=== PATIENT | female | born 1955 | race Caucasian/White ===

== ENCOUNTER → 2022-08-14 10:07 | Outpatient (BNVA) | payer MEDICARE, SELFPAY | PROVIDERS: Visit Provider Urology | DX: C67.9 Malignant neoplasm of bladder, unspecified (principal); C66.1 Malignant neoplasm of right ureter; D17.71 Benign lipomatous neoplasm of kidney | CPT/HCPCS: 99205 ==

== ENCOUNTER 2022-09-03 01:28 | Outpatient (CLI) | payer MEDICARE, SELFPAY ==
--- NOTE | 2022-09-03 07:02 | DI.CT_ITS ---
Exam(s) CT ABDOMEN PELVIS WO/W EXAM: CT ABDOMEN PELVIS WO/W CLINICAL HISTORY: ANGIOMYOLPIOMA reportedly 3x5 cm 2020, hx ureteral tumor,CA,D17.71 TECHNIQUE: Imaging Protocol: Axial computed tomography images with coronal and sagittal reformatted images were created and reviewed CONTRAST MATERIAL: Intravenous: Omnipaque 350 Contrast volume:100 mL Oral: yes / no CT CT CHEST SCREENING 13906 from 11/27/[address] CHEST W/O 33890 from 02/07/2022 FINDINGS: ABDOMEN: Lung Bases: Normal where visualized. Liver: Normal density. No measurable mass. Portal, Superior Mesenteric, and Splenic Veins: Unremarkable. Gallbladder and Biliary Tract: Status post cholecystectomy. Pancreas: Normal density, no abnormal calcifications or inflammatory process. Spleen: Normal. Adrenals: No masses seen. Kidneys: Normal size, contour and axis. No radiodense stones or obstructive uropathy. There is a fat density mass in the superior pole of the left kidney measuring 2.7 x 5.2 cm. This compares to a 3 x 5 cm on the prior examination. The finding is most suggestive of a angiomyolipoma. Abdominal Aorta: Abdominal portion non-dilated. Bowel: No obstruction or bowel wall thickening. No evidence of appendicitis. Peritoneal Cavity: No ascites, collection or mesenteric inflammatory response. No free air. Lymph Nodes: Within normal limits. Bones: Within normal limits for the patient's age. Soft Tissues: Unremarkable. PELVIS: Bladder: Symmetric distention, no gross wall thickening. The delayed images show no filling defects i n the urinary bladder. Reproductive Organs: Unremarkable as visualized. Lymph Nodes: Within normal limits. Bones: Within normal limits for the patient's age. IMPRESSION: Stable fat density mass in the upper pole of the left kidney consistent with an angiomyolipoma. RADIATION DOSE DELIVERED: 2,399.69mGy.cm Total DLP 2,399.69mGy.cm Total DLP DATA REPOSITORY: All CT scans at this facility are submitted to the National Radiology Data Registry (NRDR) Dose Index Registry (DIR) with the [employer] (ACR). RADIATION OPTIMIZATION: All CT scans at this facility use at least one of these dose optimization te chniques: automated exposure control; mA and/or kV adjustment per patient size (includes targeted exa ms where dose is matched to clinical indication); or iterative reconstruction.
[2022-09-03 07:34] LABS: HCT 42.6 % (36.0-46.0); HGB 13.6 g/dL (11.2-15.7); MCH 28.6 pg (27.0-33.0); MCHC 31.9 % (32.0-36.0); MCV 90 fL (80-95); MPV 10.6 fL (8.0-11.0); Platelet Count 360 10^3/uL (130-400); RBC 4.76 10^6/uL (3.93-5.22); RDW 14.3 % (11.7-14.6); RDW-SD 47.1 fL; WBC 6.87 10^3/uL (4.4-10.8)
[2022-09-03 07:50] LABS: ALT 28 U/L (14-59); AST 18 U/L (15-37); Albumin 3.8 g/dL (3.4-5.0); Alkaline Phosphatase 87 U/L (46-116); Anion Gap 8.5 mmol/L (3-11); BUN 23 mg/dL (7-18); Bilirubin, Total 0.4 mg/dL (0.2-1.0); CO2 27.5 mmol/L (21.0-32.0); CREATININE 0.9 mg/dL (0.55-1.02); Calcium 9.1 mg/dL (8.5-10.1); Chloride 106 mmol/L (98-107); Estimated GFR 70.95 (mL/min/1.73m2); Glucose 94 mg/dL (74-106); Potassium 4.1 mmol/L (3.5-5.1); Sodium 142 mmol/L (136-145); Total Protein 7.9 g/dL (6.4-8.2)
[2022-09-03] MEDS: Omnipaque 350 MG/ML 500 ML BTL-Imaging package IJ (08:14)
== END 2022-09-03 01:48 ==
PROVIDERS: Visit Provider Urology
DX: C66.1 Malignant neoplasm of right ureter (principal); C67.9 Malignant neoplasm of bladder, unspecified; D17.71 Benign lipomatous neoplasm of kidney
CPT/HCPCS: 80053; 85027; 74178

== ENCOUNTER → 2022-09-15 07:46 | Outpatient (BNVA) | payer MEDICARE, SELFPAY | PROVIDERS: Visit Provider Urology | DX: C66.1 Malignant neoplasm of right ureter (principal); C67.9 Malignant neoplasm of bladder, unspecified; D17.71 Benign lipomatous neoplasm of kidney | CPT/HCPCS: 99442 ==

== ENCOUNTER → 2022-09-23 08:52 | Outpatient (BNVA) | payer MEDICARE, SELFPAY | PROVIDERS: Visit Provider Urology | DX: Z08 Encounter for follow-up examination after completed treatment for malignant neoplasm (principal); Z85.51 Personal history of malignant neoplasm of bladder; Z85.54 Personal history of malignant neoplasm of ureter | CPT/HCPCS: 52000; 81003 ==

== ENCOUNTER 2022-09-23 11:00 | Outpatient (REF) | payer MEDICARE, SELFPAY ==
--- NOTE | 2022-09-23 09:20 | PAPNONF_PTH ---
PATIENT: Matthew Mendez LOC: [facility] U#:[id number] AGE/SX: 67/F ROOM: RE09/23/[address]: Robin Goldman MD : 1955 BED: DIS: 09/23/2022 SPEC #: [id number] RECD: 09/23/22 13:06 STATUS: JANNA REMelvin #: [id number] RICKY: 09/23/22 09:[address]: Robin Goldman DEPT: [facility] Cytology RECD BY: Cadence Morales Tissues: 1 - BODY FLUID CYTO(SPUTUM/URINE)[facility] Procedures: BODY FLUID CYTO(URINE/SPUTUM) Comments: [id number] (TOTAL VOLUME = 30 ml) (REFRIGERATED) (30 ml URINE & 30 ml CYTOLYT ADDED)
== END 2022-09-23 11:01 | disposition home or self-care (01) ==
LOC: LBN 11:00
PROVIDERS: Visit Provider Urology
DX: Z85.51 Personal history of malignant neoplasm of bladder (principal); Z85.54 Personal history of malignant neoplasm of ureter
CPT/HCPCS: 88104

== ENCOUNTER 2023-01-20 01:18 | Outpatient (CLI) | payer MEDICARE, SELFPAY ==
--- NOTE | 2023-01-20 | DI.MAMMO_ITS ---
Exam(s) MAMMO SCREENING EXAM: MAMMO SCREENING CLINICAL HISTORY: SCREENING, Z12.39 TECHNIQUE: Bilateral full field digital CC and MLO mammographic images were obtained with 3D tomosyn thesis and utilizing computer aided detection (CAD). COMPARISON: Available for comparison. FINDINGS: Masses/Architectural Distortion: None seen. Microcalcifications: No suspicious pleomorphic-type are seen. Skin Thickening/Nipple Retraction: None. IMPRESSION: 1. No significant interval change with no specific features of malignancy noted. 2. Unless there is more urgent need, screening mammography is recommended, as per [employer] guidelines. BI-RADS Category 1 - Negative Breast Density - Category B - Scattered areas of fibroglandular density Breast density category C or D implies that the patient has dense breast tissue. Dense breast tissue is very common and is not abnormal but dense breast tissue can make it harder to find cancer on a ma mmogram. Also, dense breast tissue may increase their breast cancer risk. This information about the result of the mammogram report was provided to the patient to raise their awareness. Use this report when you speak with the patient about their risks for breast cancer, which includes their family hist ory. At that time, you may recommend for more screening tests (Ultrasound or MRI) as they might be us eful based on their risk. A negative radiographic report should not delay biopsy if a dominant or clinically suspicious mass is present. Up to ten percent of cancers are not identified on mammography. A negative report may reinforce clinical impression. Adenosis and dense breasts may obscure an underlying neoplasm. False positive reports average 6 to 10%. Patient will receive a letter notifying them of these results.
== END 2023-01-20 01:38 ==
LOC: DI 01:18
PROVIDERS: Visit Provider Physician Assistant
DX: Z12.31 Encounter for screening mammogram for malignant neoplasm of breast (principal)
CPT/HCPCS: 77063; 77067

== ENCOUNTER → 2023-09-08 00:27 | Outpatient (CLI) | payer MEDICARE, SELFPAY ==
--- NOTE | 2023-09-08 08:00 | DI.US_ITS ---
Exam(s) US RENAL EXAM: US RENAL CLINICAL HISTORY: angiomyolipoma of kidney,D17.71 TECHNIQUE: Ultrasound of both kidneys performed using standard protocol. US US BREAST UNILATERAL LTD :- [id number] from 12/11/[address] ABDOMEN PELVIS WO/W from 09/03/2022 FINDINGS: RIGHT KIDNEY: Measures 10 cm in length. No cysts evident. Normal cortical thickness and corticomedullary differenti ation .No solid masses No intrarenal calculi nor hydronephrosis. LEFT KIDNEY: Measures 10 cm in length. No cysts evident. Normal cortical thickness and corticomedullary different iaion. No intrarenal calculi nor hydonephrosis. There is a uniformly hyperechoic lesion in the righ t hepatic lobe which measures 1.5 x 1.2 x 1.3 cm, consistent with probable angiomyolipoma. However, this appears to be a partially intrarenal as well as exophytic lesion and on ultrasound it is difficu lt to determine/measure the exophytic component from the adjacent perirenal fat. URINARY BLADDER: Prevoid volume is 157 cc Postvoid volume is 8 cc No evidence of bladder mass nor diverticuli. Ureterovesical jets: Both identified and appear symmetrical IMPRESSION: 1. No significant ultrasound findings in the right kidney. 2. With respect of the left kidney, the hyperechoic fatty lesion in the superior pole is shown to be partially intrarenal and partially exophytic. This makes accurate comparison to prior CT studies ri [facility] difficult as it is difficult to differentiate the larger exophytic component of this mass from th e adjacent perirenal fat and therefore is not possible to determine if this lesion has increased in s ize when compared to the prior CT scan of September 2022. For this reason I recommend follow-up CT sc an or MRI for accurate comparison. Cannot exclude more concerning pathology although I note that thi s partially intrarenal and partially exophytic fatty lesion at the superior pole the right kidney exh ibits minimal change on the recent 09/03/2022 CT scan from the more remote CT scan of 07/27/2020 (3 y ears). Therefore the chance of this being a more aggressive lesion such as a retroperitoneal liposar coma is less likely. In addition, the ipsilateral left adrenal gland is immediately adjacent to this fatty lesion bring in to mind the possibility of an adrenal myelolipoma. However, in this case this lesion definitely appe ars to be emanating from the superior pole of the ipsilateral left kidney and is therefore most likel y a primary renal (as opposed to adrenal) lesion. DATA REPOSITORY:
== END ==
PROVIDERS: Visit Provider Urology
DX: D17.71 Benign lipomatous neoplasm of kidney (principal)
CPT/HCPCS: 76770

== ENCOUNTER → 2023-10-05 14:05 | Outpatient (BNVA) | payer MEDICARE, SELFPAY | PROVIDERS: Visit Provider Urology | DX: D17.71 Benign lipomatous neoplasm of kidney (principal); C66.1 Malignant neoplasm of right ureter | CPT/HCPCS: 52000; 81003 ==

== ENCOUNTER 2023-10-05 14:43 | Outpatient (REF) | payer MEDICARE, SELFPAY ==
--- NOTE | 2023-10-05 14:30 | PAPNONF_PTH ---
PATIENT: Matthew Mendez LOC: [facility] U#:[id number] AGE/SX: 68/F ROOM: RE10/05/[address]: Robin Goldman MD : 1955 BED: DIS: 10/05/2023 SPEC #: [id number] RECD: 10/05/23 18:04 STATUS: JANNA MAYES #: [id number] RICKY: 10/05/23 14:[address]: Robin Goldman DEPT: [facility] Cytology RECD BY: Cadence Morales ENTERED: 10/05/23 18:05 SP TYPE: AMBROSE LUO DR: No Local Tissues: 1 - BODY FLUID CYTO(SPUTUM/URINE)[facility] Procedures: BODY FLUID CYTO(URINE/SPUTUM) Comments: [id number] (TV = 60 ml, 30 ml CYTOLYT ADDED) (REFRIGERATED)
== END 2023-10-05 14:44 | disposition home or self-care (01) ==
LOC: LBN 14:43
PROVIDERS: Visit Provider Urology
DX: C66.1 Malignant neoplasm of right ureter (principal); C67.9 Malignant neoplasm of bladder, unspecified
CPT/HCPCS: 88104

== ENCOUNTER → 2023-10-16 00:48 | Outpatient (CLI) | payer MEDICARE, SELFPAY ==
--- NOTE | 2023-10-16 08:30 | DI.CT_ITS ---
Exam(s) CT ABDOMEN PELVIS WO/W EXAM: CT ABDOMEN PELVIS WO/W CLINICAL HISTORY: f/u angiomyolipoma kidney,? change,h/o ca,D17.71. TECHNIQUE: Imaging Protocol: Axial computed tomography images with coronal and sagittal reformatted images were created and reviewed. Images were performed from the lung bases through the ischial tuberosities before IV contrast and fol lowing IV contrast using a 70 second delay, followed by 7 minutes delayed images. CONTRAST MATERIAL: Intravenous: Omnipaque 350 Contrast volume:100 cc Oral: no CT CT ABDOMEN PELVIS WO/W from 09/03/2022 FINDINGS: ABDOMEN: Lung Bases: Normal where visualized. Liver: Normal density. No measurable mass. Gallbladder and biliary tract: No radiodense calculus or dilation. Pancreas: Normal density, no abnormal calcifications or inflammatory process. Spleen: Normal. Kidneys: Normal size, contour and axis. No radiodense stones or obstructive uropathy. No change in si ze or appearance of the previously noted fatty density mass emanating from the superior pole of the left kidney. Adrenal glands: No masses seen. Lymph nodes: Within normal limits. Abdominal Aorta: Abdominal portion non-dilated. Soft tissues: Unremarkable. PELVIS: Bladder: No gross wall thickening. No evidence of a mass.No evidence of calculi. Bowel: No obstruction or bowel wall thickening. Appendix normal. Normal quantity of stool. Peritoneal cavity: No ascites, collection or mesenteric inflammatory response. Soft tissues: Bones: Degenerative changes. No compression fractures. No suspicious lesions. Reproductive organs: Unremarkable for age.. IMPRESSION: Stable size and appearance of of fatty attenuation left renal mass consistent with angiomyolipoma. RADIATION DOSE DELIVERED: Total DLP DATA REPOSITORY: All CT scans at this facility are submitted to the National Radiology Data Registry (NRDR) Dose Index Registry (DIR) with the [employer] (ACR). RADIATION OPTIMIZATION: All CT scans at this facility use at least one of these dose optimization te chniques: automated exposure control; mA and/or kV adjustment per patient size (includes targeted exa ms where dose is matched to clinical indication); or iterative reconstruction.
[2023-10-16 12:53] LABS: CREATININE 0.9 mg/dL (0.55-1.02); Estimated GFR 70.51 (mL/min/1.73m2)
[2023-10-16] MEDS: Omnipaque 350 MG/ML 100 ML BTL IJ (13:21)
[2023-10-16] MEDS: Normal Saline - Diluent 50 ML VIAL 100 ML IJ (13:23)
[2023-10-16] MEDS: Normal Saline Flush 10 ML SYR IVP (13:24)
== END ==
PROVIDERS: Visit Provider Urology
DX: C66.1 Malignant neoplasm of right ureter (principal); C67.9 Malignant neoplasm of bladder, unspecified; D17.71 Benign lipomatous neoplasm of kidney
CPT/HCPCS: 74178; 82565; J3490

== ENCOUNTER 2023-10-19 06:59 | Day surgery (SDC) | payer MEDICARE, SELFPAY ==
[2023-10-19 07:15] VITALS: BP 116/73; PULSE 70; RESP 16; TEMP 36.7; O2SAT 95
[2023-10-19] MEDS: Lactated Ringers 1,000 ML 80 ML IV (07:32)
--- NOTE | 2023-10-19 07:46 | W.ANESPRE ---
General Info Date of Service Date Performed: 10/19/23 Height: 5 ft 2 in Weight: 81.7 kg Body Mass Index (BMI): 32.9 Surgical Procedure: Operation Date: 10/19/23 08:55 Proposed Procedure Side Surgeon p Cysto/Transurethral Resection Bladder Tumor Robin Goldman MD Meds Allergies and Home Medications Allergies Allergy/AdvReac Type Severity Reaction Status Date / Time ciprofloxacin AdvReac palpitation Verified 10/19/23 07:10 s Home Medication Medication Instructions Recorded omeprazole 40 mg capsule,delayed 40 mg PO DAILY 07/16/22 release sertraline 50 mg tablet 50 mg PO DAILY 07/16/22 tramadol 50 mg tablet 50 mg PO DAILY 07/16/22 ergocalciferol (vitamin D2) 1,250 1,250 mcg PO QWEEK 09/29/23 mcg (50,000 unit) capsule famotidine 40 mg tablet 40 mg PO DAILY PRN 09/29/23 Current Visit Medications: Current Medications Generic Name Dose Route Start Last Admin Trade Name Freq PRN Reason Stop Dose Admin Ringer's Solution 1,000 mls @ 80 mls/hr 10/19/23 06:00 10/19/23 07:32 IV 11/15/23 23:59 80 mls/hr INFUSION ABISAI Administration Cefazolin Sodium/Dextrose 2 gm in 50 mls @ 100 mls/hr 10/19/23 06:00 Ancef Duplex IVPB 11/15/23 23:59 PREOP ABISAI IV Miscellaneous Supplies 1 each 10/19/23 06:00 Iv Access IV 11/15/23 23:59 DIRECTED ABISAI Sodium Chloride 0 ml 10/19/23 06:00 Normal Saline Flush 10 Ml Syr IV 11/15/23 23:59 PRN PRN Sodium Chloride 0 ml 10/19/23 06:00 Normal Saline 10 Ml Vial IJ 11/15/23 23:59 DIRECTED PRN Sterile Water 0 ml 10/19/23 06:00 Water,Injection,Sterile 10 Ml Vial IJ 11/15/23 23:59 DIRECTED PRN PFSH Active Problems Active Problems: Problem Status Onset Code Anxiety and depression F41.9, F32.A Vitamin D deficiency E55.9 Thyroid nodule E04.1 Multiple nodules of lung R91.8 Osteopenia M85.80 Medical History Medical History Diverticulosis Hernia of abdominal wall Back pain Depression GERD (gastroesophageal reflux disease) Angiomyolipoma of kidney 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 Surgical History Surgical History H/O arthrodesis History of thyroidectomy, subtotal Hx of cholecystectomy H/O ureteroscopy S/P cystoscopy with ureteral stent placement Tobacco Smoking/Tobacco Use Status: Former Tobacco Use Alcohol Alcohol Intake: current Alcohol intake frequency: holidays/special occasions only Substance Use Substance use: Never Substance use type: does not use Vital Signs and Lab Results Vital Signs Most Recent Vital Signs in EMR: Most Recent Vital Signs Temp Pulse Resp BP Pulse Ox 36.7 C 70 16 116/73 95 10/19/23 07:15 10/19/23 07:15 10/19/23 07:15 10/19/23 07:15 10/19/23 07:15 Lab Results Blood Type / Crossmatch: No Data to Display Complete Blood Count: No Data to Display Complete Metabolic Panel: Creatinine 0.9 mg/dL (0.55-1.02) 10/16/23 12:25 Est GFR (CKD-EPI 2020) 70.51 (mL/min/1.73m2) 10/16/23 12:25 Liver Function Panel: No Data to Display Coagulation Panel: No Data to Display Cardiac Panel: No Data to Display Arterial Blood Gas: No Data to Display Venous Blood Gas: No Data to Display Pancreas Panel: No Data to Display Thyroid Panel: No Data to Display Infectious Disease: No Data to Display Blood Cultures: No Data to Display Toxicology Panel: No Data to Display Anesthesia Assessment and Plan Anesthesia History Personal History: No History of Anesthesia Complications Family History: No Family History of Anesthesia Complications Exercise Tolerance Exercise Tolerance: Metabolic Equivalents>4 Pertinent Negatives Pertinent Negatives: No Symptoms of GERD, No Major Cardiovascular Symptoms or Complaints and No Major Pulmonary Symptoms or Complaints Cardiac & Pulmonary Exam Cardiac Exam: Normal S1/S2 Heart Sounds Pulmonary Exam: Clear Bilateral Breath Sounds Implantable Cardiac Device Does patient have a Pacemaker or an ICD?: No Airway Exam Known Difficult Airway: No Mallampati Class: 2 Mouth Opening: Normal (> 3cm) Thyromental Distance: Greater than 3 cm Neck Range of Motion: Full ROM Neck Circumference: Normal Teeth Condition: Normal Dentition and Removable Dentures/Plates Upper (partial) ASA Classification ASA Score: ASA 2 Emergency Case?: No NPO Status NPO Status: NPO Clears >2 hours, Solids >8 hours Anesthesia Plan Resuscitation Status: Full Code Anesthesia Technique: General Anesthesia Airway Planned: Natural Airway Monitors Used: Standard Monitors
--- NOTE | 2023-10-19 08:10 | HPE_ITS ---
Date of service: 10/19/23 Time of Service: 08:10 Assessment and Plan Assessment and plan (1) Urothelial carcinoma of bladder: Assessment and plan: We will plan a cystoscopy with transurethral resection of her visible lesions. All of her previous transurethral resections have been done elsewhere. I do not have access to the pathology slides for direct review. For that reason, I am not intending on using a single dose of perioperative chemotherapy today. If her tumors are low-grade and noninvasive and they do recur, we will use intravesical Mitomycin-C or gemcitabine perioperatively in the future. History of Present Illness History of Present Illness Chief Complaint: Bladder cancer Narrative: This is a 67-year-old woman who has a history of urothelial cell carcinoma of the bladder. On one occasion, she had a recurrence in the right distal ureter. On her most recent surveillance cystoscopy, we found 3 small papillary lesions up at the dome of the bladder. Her urine cytology showed no evidence of high- grade urothelial cells. She is not seeing any gross hematuria. She presents for cystoscopy with TUR bladder tumor She does have a history of a left angiomyolipoma. On follow-up CT scan, there is no change in her known renal mass. We had previously arranged a renal ultrasound but the mass was difficult to compare to previous CT scans. Review of Systems Narrative: No fevers or chills No vision change or dysphasia No diabetes or thyroid dysfunction No shortness of breath, cough or hemoptysis No chest pain or palpitations GERD. 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 Surgical History H/O arthrodesis History of thyroidectomy, subtotal Hx of cholecystectomy H/O ureteroscopy S/P cystoscopy with ureteral stent placement Social History Smoking/Tobacco Use Status: Former Tobacco Use Quit Date: 11/02/97 Smoking risk assessment performed?: Yes Alcohol Intake: current Alcohol Intake frequency: holidays/special occasions only Drug use: Never Substance use type: does not use Housing: house Do you feel safe at home: Yes Do you feel safe in your relationship?: Yes Meds Allergies and Home Medications Allergies Allergy/AdvReac Type Severity Reaction Status Date / Time ciprofloxacin AdvReac palpitation Verified 10/19/23 07:10 s Home Medications Medication Instructions Recorded Confirmed Type omeprazole 40 mg capsule,delayed 40 mg PO DAILY 07/16/22 10/19/23 History release sertraline 50 mg tablet 50 mg PO DAILY 07/16/22 10/19/23 History tramadol 50 mg tablet 50 mg PO DAILY 07/16/22 10/19/23 History ergocalciferol (vitamin D2) 1,250 1,250 mcg PO QWEEK 09/29/23 10/19/23 History mcg (50,000 unit) capsule famotidine 40 mg tablet 40 mg PO DAILY PRN 09/29/23 10/19/23 History Exam Const General: cooperative Resp Effort & Inspection: normal respiratory effort Auscultation: clear to auscultation bilaterally Cardio Rate: regular rate Rhythm: regular rhythm GI Palpation: soft and no masses Neuro General: patient alert, patient awake and patient oriented x3 Results Last Vital Signs Temp 36.7 C 10/19/23 07:15 Pulse 70 10/19/23 07:15 Resp 16 10/19/23 07:15 BP 116/73 10/19/23 07:15 Pulse Ox 95 10/19/23 07:15 Time Spent Time spent with Patient: <40 minutes Time was spent: other
[2023-10-19 08:16] VITALS: BMI 32.9
[2023-10-19] MEDS: ceFAZolin 2 GM/50 ML BAG IVPB (08:30)
[2023-10-19] MEDS: Lidocaine 2% Jelly 6 ML SYR (08:46)
--- NOTE | 2023-10-19 08:55 | BLADDER_PTH ---
PATIENT: Matthew Mendez LOC: [facility] U#:[id number] AGE/SX: 68/F ROOM: RE10/19/[address]: Robin Goldman MD : 1955 BED: DIS: 10/19/2023 SPEC #: [id number] RECD: 10/19/23 12:58 STATUS: JANNA REQ #: [id number] RICKY: 10/19/23 08:[address]: Robin Goldman DEPT: Surgical Specimen RECD BY: Cadence Morales ENTERED: 10/19/23 12:59 SP TYPE: Bladder OTHR DR: Prosper Gray Tissues: 1 - BLADDER BIOPSY Procedures: GROSS AND MICRO LEVEL 4 Comments: [id number]
--- NOTE | 2023-10-19 09:03 | W.PM.DSUDISC ---
Date of service: 10/19/23 Time of Service: 09:03 Discharge Plan Disposition Condition: Stable Discharge Details Reason For Visit: bladder tumor Attending Provider: Robin Goldman Primary Care Provider: Prosper Gray Home Meds and New Rx's Prescriptions: No Action omeprazole 40 mg capsule,delayed release(DR/EC) 40 mg PO DAILY sertraline 50 mg tablet 50 mg PO DAILY tramadol 50 mg tablet 50 mg PO DAILY famotidine 40 mg tablet 40 mg PO DAILY PRN ergocalciferol (vitamin D2) 1,250 mcg (50,000 unit) capsule 1,250 mcg PO QWEEK Discharge Instructions Additional Instructions: moura to leg bag or large drainage bag (patient choice) follow up to have catheter removed 3 to 5 days followup appt to review surgical pathology in @ 2 weeks Activity:: Activity as Tolerated Shower/Bathe:: 24 hours Diet:: As Tolerated DS: Diagnosis Discharge Diagnosis (1) Urothelial carcinoma of bladder:
--- NOTE | 2023-10-19 09:04 | ROE_ITS ---
Date of service: 10/19/23 Time of Service: 09:04 Operative Note Operative Note DATE OF PROCEDURE: 10/19/23 PRE-OP DIAGNOSIS: Bladder tumor POST-OP DIAGNOSIS: same PROCEDURE: cystoscopy, TUR small bladder tumor SURGEON: Robin Goldman ANESTHESIA TYPE: Local By Surgeon and General:No Airway Refer to Anesthesia Record ESTIMATED BLOOD LOSS: 5 PATHOLOGY: other (bladder tumor) COMPLICATIONS: None Patient was transported to: same day Patient's condition: stable Implants: 16 filipino moura with 5 cc sterile water in balloon Indications: This is a 68-year-old woman who has a history of urothelial cell carcinoma of the bladder. The diagnosis was made at another hospital, but I believe the lesions have been low-grade and noninvasive. There is also a report of a recurrence at the right distal ureter. She has been treated with transurethral resections. I do not have any record of intravesical chemotherapy or immunotherapy. On surveillance cystoscopy, she was found to have papillary lesion up towards the dome of the bladder. She presents for transurethral resection Findings: small (<2 cm) papillary lesion at the posterior bladder wall near the dome Multiple surgical scars from previous transurethral resection Procedure Description: The patient was given preoperative antibiotics and brought to the operating room on 10/19/2023. After successful induction of general anesthesia without intubat ion, she was placed in the dorsal lithotomy position. Her genitalia was prepped with Betadine. 2% Xylocaine jelly was instilled into the urethra to act as a local anesthetic. A 24 Romanian resectoscope sheath was passed through the urethra into the bladder. The bladder was inspected with a 30 degree lens. As previously identified in the office cystoscopy, we saw a papillary lesion on the posterior bladder wall up towards the dome. No additional lesions were visible. Both ureteral orifices were identified. Clear urine was seen coming from each orifice. Multiple healed surgical scars were identified in other locations. We then utilized bipolar cautery and an [employer] resectoscope to perform transurethral resection of the visible lesion. The lesion was sent to pathology for permanent section. Any bleeding points were cauterized using the coagulation current. Because of the depth of the resection, we decided to leave a Moura catheter in place. Shows a 16 Romanian Moura and passed the catheter through the urethra into the bladder. The catheter balloon was inflated with 10 cc of sterile water and the catheter was hooked to gravity drainage. The patient tolerated this procedure well with no complications. She was taken back to the day surgery unit in stable condition.
[2023-10-19 09:09] VITALS: BP 110/64; PULSE 81; RESP 16; TEMP 36.5; O2SAT 90
[2023-10-19] MEDS: Phenazopyridine 200 MG TAB PO (09:47)
[2023-10-19 09:48] VITALS: BP 112/75; PULSE 78; RESP 16; TEMP 36.6; O2SAT 94
--- NOTE | 2023-10-19 10:29 | W.ANESPOSTOP ---
Postoperative Evaluation Date, Time and Location Date Performed: 10/19/23 Time Performed: 10:16 Patient Location: Day Surgery Unit Vital Signs Most Recent Imported Vital Signs: Most Recent Vital Signs Temp Pulse Resp BP Pulse Ox 36.6 C 78 16 112/75 94 10/19/23 09:48 10/19/23 09:48 10/19/23 09:48 10/19/23 09:48 10/19/23 09:48 Pain Score Most Recent Pain Score: Most Recent Pain Score Pain Level 5 10/19/23 09:48 Assessment Mental Status: Awake (Alert & Oriented to Patient Baseline) Airway and Respiratory Function: Patent airway with normal (patient baseline) respiratory exam Cardiovascular Function: Hemodynamically Stable Hydration Status: Adequately Hydrated Nausea & Vomiting: No Nausea or Vomiting Pain: Pain is tolerable per patient Peripheral Nerve Block: Patient did not receive a nerve block
== END 2023-10-19 07:00 | disposition home or self-care (01) ==
PROVIDERS: PCP Physician Assistant; Visit Provider Urology
PROC: 0TBB8ZZ Excision of Bladder, Via Natural or Artificial Opening Endoscopic (ICD-10-PCS; CPT 52234; principal; 2023-10-19 08:45)
DX: D41.4 Neoplasm of uncertain behavior of bladder (principal); Z85.51 Personal history of malignant neoplasm of bladder
CPT/HCPCS: 52234; 88305; J0690; J1100; J1885; J2001; J2250; J2405

== ENCOUNTER → 2023-10-22 07:58 | Outpatient (BNVA) | payer MEDICARE, SELFPAY | PROVIDERS: PCP Physician Assistant; Referring Provider Physician Assistant; Visit Provider Nurse Practitioner Gerontology | DX: C67.9 Malignant neoplasm of bladder, unspecified (principal) | CPT/HCPCS: 99212 ==

== ENCOUNTER → 2023-11-19 09:36 | Outpatient (BNVA) | payer MEDICARE, SELFPAY | PROVIDERS: PCP Physician Assistant; Referring Provider Physician Assistant; Visit Provider Student in an Organized Health Care Education/Training Program | DX: M65.311 Trigger thumb, right thumb (principal) | CPT/HCPCS: 99213 ==

== ENCOUNTER → 2023-12-01 15:01 | Outpatient (BNVA) | payer MEDICARE, SELFPAY | PROVIDERS: PCP Physician Assistant; Referring Provider Physician Assistant; Visit Provider Urology | DX: C67.9 Malignant neoplasm of bladder, unspecified (principal) | CPT/HCPCS: 99213 ==

== ENCOUNTER 2023-12-02 12:23 | Day surgery (SDC) | payer MEDICARE, SELFPAY ==
[2023-12-02 12:37] VITALS: BP 141/75; PULSE 66; RESP 18; TEMP 36.7; O2SAT 99
[2023-12-02] MEDS: Lidocaine 1% Multi-Dose W/EPI 1/100,000 50 ML VIAL (14:45)
[2023-12-02] MEDS: Sodium Bicarbonate 50 MEQ/50 ML VIAL (14:46)
--- NOTE | 2023-12-02 14:52 | W.PM.DSUDISC ---
Date of service: 12/02/23 Time of Service: 14:53 Discharge Plan Disposition Patient Disposition: Home Condition: Good Discharge Details Reason For Visit: R Trigger thumb release Attending Provider: Saud Curry Primary Care Provider: Prosper Gray Home Meds and New Rx's Prescriptions: New acetaminophen 500 mg tablet 1,000 mg PO TID Qty: 90 0RF ibuprofen 600 mg tablet 600 mg PO TID PRNQty: 90 3RF Continued omeprazole 40 mg capsule,delayed release(DR/EC) 40 mg PO DAILY sertraline 50 mg tablet 50 mg PO DAILY famotidine 40 mg tablet 40 mg PO DAILY PRN ergocalciferol (vitamin D2) 1,250 mcg (50,000 unit) capsule 1,250 mcg PO QWEEK oxybutynin chloride 5 mg tablet 5 mg PO BID-TID PRN (Reason: bladder spasms) Qty: 60 1RF tramadol 50 mg tablet 50 mg PO DAILY PRN Discharge Instructions Stand Alone Forms: Antoinette Roberto Finger Release Referrals: Saud Curry MD [ [facility] STAFF PHYSICIAN] - Activity:: Activity as Tolerated Remove Dressings/Wound Care:: 48 hours Shower/Bathe:: 48 hours Diet:: As Tolerated Discharge Orders Discharge Orders: Discharge Order (Routine); Ordered 12/02/23 Ordered By: Parviz Louis
[2023-12-02 14:53] VITALS: BP 124/80; PULSE 69; RESP 16; TEMP 36.6; O2SAT 99
--- NOTE | 2023-12-02 20:55 | W.PM.OP ---
Date of service: 12/02/23 Time of Service: 14:20 Operative Note Operative Note DATE OF PROCEDURE: 12/02/23 PRE-OP DIAGNOSIS: Right Trigger Thumb POST-OP DIAGNOSIS: same PROCEDURE: Trigger Finger Release - Right Trigger Thumb SURGEON: Saud Curry ANESTHESIA TYPE: Local By Surgeon Refer to Anesthesia Record ESTIMATED BLOOD LOSS: 5 PATHOLOGY: none sent COMPLICATIONS: None Patient was transported to: same day Patient's condition: stable Indications: I have seen Matthew in clinic for symptoms of a trigger finger. The catching, clicking, locking, and pain limited function. The diagnosis of trigger finger was evident. The symptoms had not responded to conservative measures. I discussed trigger finger release with the patient. I reviewed the risks of the procedure to include, but not limited to, bleeding, infection, pain, stiffness, incomplete release, damage to nerves or vessels, continued catching, recurrence. Despite these risks, the patient elected to proceed. Findings: There was a tightened A1 lissette which was released. The flexor tendons were inspected and the patient was able to move the finger without any catching, clicking, or locking. Procedure Description: Matthew was greeted in the preoperative holding area where the correct side was identified and marked. The consent was reviewed with the patient and signed. All questions were answered. She was taken back to the operating room. The patient was placed into the supine position on the operating room table with the right arm on an arm board. All bony prominences were well padded. No prophylactic antibiotics were administered since this was a clean, elective hand surgical case. The [facility] arm was then prepped with Chloraprep and draped in a standard fashion with stockinette and extremity drape. A timeout to confirm correct identity, side and site, procedure, allergies, anesthesia, and medical concerns was performed. The surgical site was marked as a longitudinal incision directly over the A1 lissette of the involved digit. This was confirmed with palpation during finger flexion. This area, overlying the metacarpal head, was then anesthetized with 1% Lidocaine. The patient tolerated this well and once the anesthetic had setup, the procedure began. A longitudinal incision was made through skin only, approximately 1cm. The deep tissues were dissected bluntly. Once the A1 lissette and flexor tendons were identified the soft tissue including neurovascular structures were retracted medially and laterally. There were no crossing structures over the A1 lissette. The proximal edge of the lissette was identified and the lissette was incised with tenotomy scissors. There was a release of the tendons once this was fully released. The tendons were then removed from the wound and inspected. Excess synovium was resected. The tendons were then returned and the patient was asked to move the finger into deep flexion and back to extension. There was no recreation of the pre-operative symptoms. The hand was then once more inspected for any A0 lissette or area of possible constriction. The wound was then irrigated and the skin was closed with a 4-0 Nylon. This was dressed with gauze and a Conform dressing. The patient tolerated the procedure well and was returned to the Same Day Surgery area in a stable condition suffering no known complication.
== END 2023-12-02 15:10 | disposition home or self-care (01) ==
PROVIDERS: PCP Physician Assistant; Visit Provider Student in an Organized Health Care Education/Training Program
PROC: (CPT 26055; principal; 2023-12-02 13:45)
DX: M65.311 Trigger thumb, right thumb (principal)
CPT/HCPCS: 26055; J2004

== ENCOUNTER → 2023-12-10 11:18 | Outpatient (BNVA) | payer MEDICARE, SELFPAY | PROVIDERS: PCP Physician Assistant; Referring Provider Physician Assistant | DX: Z47.89 Encounter for other orthopedic aftercare (principal); M65.311 Trigger thumb, right thumb ==

== ENCOUNTER → 2024-01-28 03:10 | Outpatient (CLI) | payer MEDICARE, SELFPAY ==
--- NOTE | 2024-01-28 12:02 | DI.MAMMO_ITS ---
Exam(s) MAMMO SCREENING EXAM: MAMMO SCREENING CLINICAL HISTORY: SCREENING, Z12.31 TECHNIQUE: Bilateral full field digital CC and MLO mammographic images were obtained with 3D tomosyn thesis and utilizing computer aided detection (CAD). COMPARISON: Available for comparison. FINDINGS: Masses/Architectural Distortion: There is a 4 mm asymmetric density in the central inferior left dionisio st on the MLO view. It is 9 cm from the nipple. This was not seen on prior examinations. Microcalcifications: No suspicious pleomorphic-type are seen. Skin Thickening/Nipple Retraction: None. IMPRESSION: 1. New 4 mm asymmetric density in the inferior left breast on the MLO view. 2. Spot compression views requested for further evaluation. Limited left breast ultrasound may be in dicated at that time. BI-RADS Category 0 - Assessment Incomplete: Need additional imaging evaluation Breast Density - Category B - Scattered areas of fibroglandular density Breast density category C or D implies that the patient has dense breast tissue. Dense breast tissue is very common and is not abnormal but dense breast tissue can make it harder to find cancer on a ma mmogram. Also, dense breast tissue may increase their breast cancer risk. This information about the result of the mammogram report was provided to the patient to raise their awareness. Use this report when you speak with the patient about their risks for breast cancer, which includes their family hist ory. At that time, you may recommend for more screening tests (Ultrasound or MRI) as they might be us eful based on their risk. A negative radiographic report should not delay biopsy if a dominant or clinically suspicious mass is present. Up to ten percent of cancers are not identified on mammography. A negative report may reinforce clinical impression. Adenosis and dense breasts may obscure an underlying neoplasm. False positive reports average 6 to 10%. Patient will receive a letter notifying them of these results.
--- NOTE | 2024-01-28 12:38 | DI.US_ITS ---
Exam(s) US THYROID EXAM: US THYROID CLINICAL HISTORY: THYROID NODULE,E04.1. TECHNIQUE: Ultrasound thyroid performed using standard protocol. COMPARISON: US US THYROID AND OR PARATHYROID [id number] from 02/11/2022 FINDINGS: ISTHMUS: 3 mm RIGHT LOBE: Size: 3.2 x 1.5 x 1.9 cm Echogenicity: Normal. Vascularity: Normal. Nodules: No suspicious right thyroid nodules. LEFT LOBE: Size: 3 x 1.7 x 1.7 cm Echogenicity: Normal. Vascularity: Normal. Nodules: There is a solid 1.1 x 1.3 x 1.2 cm isoechoic smoothly marginated nodule. There are few pun ctate echogenic foci. This is consistent with a TI rads level 4 nodule. Due to its size, follow-up ultrasound is recommended. There is a 1.1 x 0.8 x 0.8 cm solid hypoechoic nodule. No echogenic foci are seen. It is consistent with a TI rads level 4 nodule. Due to its size, ultrasound follow-up is recommended. OTHER FINDINGS: None. IMPRESSION: Follow-up ultrasound recommended on 2 left thyroid nodules. DATA REPOSITORY:
== END ==
PROVIDERS: PCP Physician Assistant; Visit Provider Physician Assistant
DX: Z12.31 Encounter for screening mammogram for malignant neoplasm of breast (principal); R92.8 Other abnormal and inconclusive findings on diagnostic imaging of breast; E04.2 Nontoxic multinodular goiter
CPT/HCPCS: 77063; 77067; 76536

== ENCOUNTER → 2024-02-09 00:47 | Outpatient (CLI) | payer MEDICARE, SELFPAY ==
--- NOTE | 2024-02-09 | DI.MAMMO_ITS ---
Exam(s) MAMMO SCREEN CALL BACK UNI EXAM: MAMMO SCREEN CALL BACK UNI CLINICAL HISTORY: NEW 4MM ASYMMETRIC DENSITY LEFT BREAST R92.8 ABNL MAMMO TECHNIQUE: Spot compression views with tomographic imaging were performed. COMPARISON: 2020 through recent exam of 28 January 2024 FINDINGS: No suspicious masses or suspicious microcalcifications are seen. No persistent abnormality is seen on the additional views performed. The findings are consistent wit h overlying fibroglandular tissue. There has been no significant change from prior exams. IMPRESSION: BI-RADS Category 1, Negative Yearly screening mammography is recommended. Breast Density - Category B, scattered fibroglandular densities.
== END ==
PROVIDERS: PCP Physician Assistant; Visit Provider Physician Assistant
DX: Z12.31 Encounter for screening mammogram for malignant neoplasm of breast (principal); R92.8 Other abnormal and inconclusive findings on diagnostic imaging of breast; R92.322 Mammographic fibroglandular density, left breast
CPT/HCPCS: 77063; 77067

== ENCOUNTER → 2024-05-25 01:04 | Outpatient (CLI) | payer MEDICARE, SELFPAY ==
--- NOTE | 2024-05-25 | DI.RAD_ITS ---
Exam(s) XR LUMBAR SPINE COMPLETE EXAM: XR LUMBAR SPINE COMPLETE CLINICAL HISTORY: LOW BACK PAIN, M54.50. TECHNIQUE: 2D digital imaging was performed of the lumbar spine. Five images were obtained. AP, la teral, right oblique, left oblique and L5-S1 spot views were obtained. COMPARISON: CT CT ABDOMEN PELVIS WO/W from 10/16/2023 FINDINGS: BONES: No fracture or destructive lesion. There are endplate osteophytes at multiple levels of the christo mbar spine. Multilevel degenerative changes of the facets are seen. The findings are most marked fr om L3-4 through L5-S1. DISKS: There is disc space narrowing at T12-L1 and L5-S1. There is a vacuum disc at L5-S1. ALIGNMENT: Lumbar spinal alignment is within normal limits. No spondylolysis or spondylolisthesis. SOFT TISSUE: There are surgical clips in the right upper quadrant of the abdomen likely reflecting pr ior cholecystectomy. IMPRESSION: Moderate degenerative changes in the lumbar spine. DATA REPOSITORY: RADIATION DOSE DELIVERED:
--- OUTSIDE RECORDS SUMMARY | 2024-05-25 01:13 | XMS_ITS | Encounter Summary ---
Author Organization [facility] Address [address] [place] [address] Care Team Providers Care Php Lamp Developer Name Role Phone Unknown, Provider Primary Care Provider Encounter Details Date Type Department Care Team (Late st Contact Info) Description 10/19/2023 Lab Requisition [facility] Pathology & Laboratory Medicine - [facility] [address] [place] [address] Robin Goldman MD [address] [place] [address] [place] [address] Encounter for other general examination Social History Tobacco Use Types Packs/Day Years Used Date Smoking Tobacco: Never Assessed Sex and Gender Information Value Date Recorded Sex Assigned at Not on file Gender Identity Not on file Sexual Orientation Not on file documented as of this encounter Plan of Treatment Not on file documented as of this encounter Procedures Procedure Name Priority Date/Time Associated Diagnosis Comments SURGICAL PATHOLOGY Today 10/19/2023 8: 55 EST Encounter for other general examination documented in this encounter Results * SURGICAL PATHOLOGY (10/19/2023 8:55 EST) Note to Patient The following pathology results have been interpreted by your pathologist and may be available to you before your health provider has had the opportunity to review them. Please allow time for your provider to receive these results and explore management options, if applicable. 10/22/2023 11:26 [facility] Final Diagnosis A. URINARY BLADDER, TUMOR, BIOPSY: - Mostly denuded epithelial lining with minute partially detached flat urothelium showing severe cautery changes and reactive changes. See comment. - No definitive dysplasia/carcino ma in-situ or lennie malignancy. - Muscularis propria identified, negative for malignancy. 10/22/2023 11:26 [facility] Diagnosis Comment Deeper sections have been examined. Limited amount of evaluable urothelium precludes further evaluation. 10/22/2023 11:26 [facility] Attestation There was significant resident/fellow involvement in the diagnostic evaluation of this case. By the signature below, the attending physician certifies that they have personally conducted a gross and/or microscopic examination of the described specimens and rendered or confirmed the above diagnosis. 10/22/2023 11:26 [facility] at 1126 Clinical History Urothelial carcinoma of bladder 10/22/2023 11:26 [facility] Gross Description A. Received in formalin labelled with proper patient identification (initials C, D) and bladder tumor are 2 [place] rubbery focally cauterized tissue fragments measuring 0.5 x 0.3 x 0.3 cm and 0.8 x 0.6 x 0.4 cm. Entirely submitted in A1. OFELIA BARROW(ASCP) 10/20/2023 8:33 10/22/2023 11:26 [facility] Resident/Lester w: Kana Lazar MD 10/22/2023 11:26 [facility] Performing Lab [facility] 10/22/2023 11:26 [facility] Scanned Images 10/22/2023 11:26 [facility] Tissue SPECIMEN FROM URINARY BLADDER / Unknown 10/19/2023 8:55 EST 10/19/2023 20:03 EST Robin Goldman MD PATHOLOGY [facility] [address] [place] [address] documented in this encounter Visit Diagnoses Diagnosis Encounter for other general examination documented in this encounter Care Teams Php Lamp Developer Relationship Specialty Start Date End Date Unknown, Provider, PCP - General 09/02/22 documented as of this encounter
--- OUTSIDE RECORDS SUMMARY | 2024-05-25 01:13 | XMS_ITS | Encounter Summary ---
Author Organization [facility] Address [address] [place] [address] Care Team Providers Care Net Repairer Name Role Phone Unknown, Provider Primary Care Provider Encounter Details Date Type Department Care Team (Late st Contact Info) Description 09/24/2022 Lab Requisition [facility] Pathology & Laboratory Medicine - [facility] [address], [place] [id number] Robin Goldman MD [address] [place] [address] [place] [address] Encounter for other general examination [...] Procedure Name Priority Date/Time Associated Diagnosis Comments NON HELICOPTER CREW CHIEF/FNA CYTOLOGY Today 09/23/2022 9:20 EST Encounter for other general examination documented in this encounter Results * NON HELICOPTER CREW CHIEF/FNA CYTOLOGY (09/23/2022 9:20 EST) Note to Patient The following pathology results have been interpreted by your pathologist and may be available to you before your health provider has had the opportunity to review them. Please allow time for your provider to receive these results and explore management options, if applicable. 09/26/2022 9:48 EST [facility] Final Diagnosis URINE, VOIDED, CYTOLOGIC EVALUATION: - Negative for high grade urothelial carcinoma. 09/26/2022 9:48 EST [facility] Attestation There was significant resident/joe w involvement in the diagnostic evaluation of this case. By the signature below, the attending physician certifies that they have personally conducted a gross and/or microscopic examination of the described specimens and rendered or confirmed the above diagnosis. 09/26/2022 9:48 [facility] at 0948 Clinical History Urothelial carcinoma of the bladder 09/26/2022 9:48 [facility] Gross Description A. 60ccs of clear yellow fluid, of which 30ccs are composed of fixative, were received and processed by selective cellular enhancement technique. 09/26/2022 9:48 [facility] Resident/Joe w: Ruben White MD 09/26/2022 9:48 [facility] Performing Lab [facility] 09/26/2022 9:48 [facility] Scanned Images 09/26/2022 9:48 [facility] Urine VOIDED URINE SPECIMEN / Unknown 09/23/2022 9:20 EST 09/24/2022 7:03 EST Robin Goldman MD PATHOLOGY ORDERAB [facility] [address] [place] [address] documented in this encounter Visit Diagnoses Diagnosis Encounter for other general examination documented in this encounter Care Teams Net Repairer Relationship Specialty Start Date End Date Unknown, Provider, PCP - General 09/02/22 documented as of this encounter
--- OUTSIDE RECORDS SUMMARY | 2024-05-25 01:13 | XMS_ITS | Continuity of Care Document ---
Author Organization [place] - [facility], [facility] [place] [address] Assessment No assessment recorded. Plan of Treatment Reminders Order Date Submit Date Provider Last Modified By Organization Details Last Modified Time Details Appointments Follow Up 30 2023 10:30A M PROSPER HOLGUIN Not available Not available Not available Lab None recorded. Referral sleep medicine referral - suspected sleep apnea 2023 024 [facility], [address] [place] [address] [address], [place], [address], 05/18/2024 09:10:45 Procedures None recorded. Surgeries None recorded. Imaging XR, lumbar spine, 2 view - chronic low back pain. 2023 024 [email or web address], [address], [place], [address], 05/18/2024 09:36:56 Medication Orders tramadol 50 mg tablet 2023 024 [facility], [address] [place], [address], 05/17/2024 13:14:12 triamcino lone acetonide 0.1 % topical ointment 2023 024 [facility], [address] [place], [address], 05/17/2024 10:57:04 Patient TargetsNo targets recorded. Patient Instructions Encounter Date Encounter Id Patient Instructions Last Modified By Organization Details Last Modified Time 05/17/2024 [id number] We will get an x-ray of your lower back, and get a sleep study. Call us when you are in [place] for refill of tramadol. [email or web address] Not available 05/17/2024 11:03:58 Reason for Referral Cobol Application Developer Referral for Travis ateral hearing loss chronic slowly progressive hearing loss Referring Physician: Prosper Holguin [facility], Encounter Date: 12/08/2023 Sleep Medicine Referral for Daytime somnolence suspected sleep apnea Referring Physician: Prosper Holguin [facility], Encounter Date: 05/17/2024 Problems Name Status Onset Date Resolution Date Notes Provider Name and Address Organization Details Recorded Time Anxiety Active 202106/08/2023 - Comments only - Prosper Holguin RPA - Well-controll ed on 50 mg of sertraline. She just bought a new puppy that she thinks is helping her mood as well. Problem Code: F41.8; Problem Code Type: ICD-10; Not Available [facility] 3 05:34:19 Malignant neoplasm of urinary bladder Active 202103/23/2023 - Comments only - Prosper Holguin RPA - She continues with routine surveillance with urology. Problem Code: C67.9; Problem Code Type: ICD-10; Not Available [facility] 3 05:34:19 Gastroesophag eal reflux disease without esophagitis Active 202106/08/2023 - Comments only - Prosper Holguin RPA - She takes daily PPI. She is unable to tolerate a day without it. Well-controll ed as long she takes the PPI. Occasional breakthrough that responds to famotidine. Problem Code: K21.9; Problem Code Type: ICD-10; Not Available [facility] 3 05:34:19 Vitamin D deficiency Active 2021 Problem Code: E55.9; Problem Code Type: ICD-10; Not Available [facility] 3 05:34:19 Non-toxic uninodular goiter Active 202109/30/2022 - Comments only - Prosper Holguin RPA - Routine surveillance. Last in January 2022. Recommended a 2-year follow-up ultrasound. Problem Code: E04.1; Problem Code Type: ICD-10; Not Available [facility] 3 05:34:19 Low back pain Active 202109/29/2022 - Comments only - Prosper Holguin RPA - tramadol prn Problem Code: M54.50; Problem Code Type: ICD-10; Not Available [facility] 3 05:34:20 Pain of left shoulder joint Active 202109/30/2022 - Comments only - Prosper Holguin RPA - Chronic recurring discomfort in her left shoulder. Generally functional. No significant loss in strength or range of motion. Reviewed gentle stretching and range of motion exercises. Problem Code: M25.512; Problem Code Type: ICD-10; Not Available [facility] 3 05:34:20 Benign neoplasm of kidney Active 202109/30/2022 - Comments only - Prosper Holguin [facility] - Left kidney. Being followed by Dr. Goldman. Problem Code: D30.00; Problem Code Type: ICD-10; Not Available [facility] 3 05:34:20 Lung field abnormal Active 202109/30/2022 - Comments only - Prosper Holguin RPA - stable on 02/21/22 CT. No further followup needed. Problem Code: R91.8; Problem Code Type: ICD-10; Not Available [facility] 3 05:34:20 Screening for malignant neoplasm of breast Active 2022 Problem Code: Z12.39; Problem Code Type: ICD-10; Not Available [facility] 3 05:34:20 Bone density finding Active 202206/08/2023 - Comments only - Prosper Holguin RPA - She had a DEXA scan in 2021. Revealed mild osteopenia. She takes weekly vitamin D2. Unfortunately she takes daily PPI as well. Unable to tolerate weaning. Encouraged routine walking. Problem Code: M85.80; Problem Code Type: ICD-10; Not Available [facility] 3 05:34:20 Hyperlipidemi a Completed 202109/30/2022 Problem Code: E78.5; Problem Code Type: ICD-10; Not Available [facility] 3 05:34:21 Anemia Completed 202109/30/2022 Problem Code: D64.9; Problem Code Type: ICD-10; Not Available [facility] 3 05:34:21 Hemorrhoids Completed 202109/30/2022 Problem Code: K64.9; Problem Code Type: ICD-10; Not Available [facility] 3 05:34:21 Major depression, single episode Completed 202109/30/2022 Problem Code: F32.9; Problem Code Type: ICD-10; Not Available [facility] 3 05:34:21 Osteoarthriti s Completed 202109/30/2022 Problem Code: M19.90; Problem Code Type: ICD-10; Not Available [facility] 3 05:34:21 Pain in thoracic spine Completed 202109/30/2022 Problem Code: M54.9; Problem Code Type: ICD-10; Not Available [facility] 3 05:34:21 Osteoarthriti s of multiple joints Completed 202109/30/2022 Problem Code: M15.9; Problem Code Type: ICD-10; Not Available [facility] 3 05:34:22 Trigger thumb of right hand Active 2022 Problem Code: M65.311; Problem Code Type: ICD-10; Not Available [facility] 4 05:37:53 Problem Notes None recorded. Procedures Surgical History Date Name Laterality Status Provider Name and Address Organization Details Recorded Time 4 release of trigger thumb completed [address], [place], [address], [facility] 12/02/2023 20:37:30 3 excision of urinary bladder completed [address], [place], [address], [facility] 10/19/2023 09:43:44 Imaging Results None recorded. Procedure Notes None recorded. Medical Equipment None Reported. Allergies Allergen ID Allergen Name Allergen Category Reaction Reaction Severity Criticality Documentation Date Start Date Code Code System Note Provider Name and Address Organization Details Recorded Time 15960 Cipro medicatio n palpitati ons severe Not available 09/11/2023202156 3 RxNorm palpi tatio ns Not Available [facility] 3 16:21:51 89917 levofloxa heather medicatio n palpitati ons moderate Not available 09/11/20232021 78425 RxNorm palpi tatio ns Aller gyCod e: '1665 517'; Aller gyNam e: 'LEVO FLOXA HEATHER'; Aller gyCon ceptT ype: 'RX Norm' ; Not Available [facility] 3 16:21:51 Medications Name Sig Start Date Stop Date Status Note LastModified by Organization Details LastModified Time Claritin 10 mg tablet Take 1 tablet by mouth once a day as needed 09/29 completed Not Available Not Available Not Available famotidine 40 mg tablet TAKE ONE TABLET BY MOUTH EVERY DAY NEEDED active Not Available Not Available No t Available dexamethas one 6 mg tablet Take 1 tablet by mouth once a day 09/29 completed Not Available Not Available Not Available sertraline 100 mg tablet Take 1 tablet by mouth once a day active Not Available Not Available No t Available Ferrex 150 mg iron capsule Take 1 capsule by mouth once a day 09/29 completed Not Available Not Available Not Available omeprazole 40 mg capsule,de layed release TAKE ONE CAPSULE BY MOUTH EVERY DAY active Not Available Not Available No t Available bisoprolol 2.5 mg-hydroch lorothiazi de 6.25 mg tablet Take 1 tablet by mouth at bedtime 09/29 completed Not Available Not Available Not Available tramadol 50 mg tablet TAKE ONE TABLET BY MOUTH THREE TIMES A DAY NEEDED active Not Available Not Available No t Available omeprazole 10 mg capsule,de layed release Take 1 capsule by mouth once a day 09/09 completed Not Available Not Available Not Available triamcinol one acetonide 0.1 % topical ointment APPLY A THIN LAYER TO THE AFFECTED AREA(S) BY TOPICAL ROUTE 2 TIMES PER DAY as needed 2023 active Not Available Not Available Not Avai lable ergocalcif anita (vitamin D2) 1,250 mcg (50,000 unit) capsule TAKE ONE CAPSULE BY MOUTH ONCE WEEKLY 2023 active Not Available Not Available Not Avai lable ibuprofen 600 mg tablet active as needed Not Available Not Available Not Available oxybutynin chloride 5 mg tablet TAKE 1 TABLET BY MOUTH 2 TO 3 TIMES A DAY NEEDED FOR BLADDER SPASMS 05/17 completed Not Available Not Available Not Available sertraline 50 mg tablet TAKE ONE TABLET BY MOUTH EVERY DAY 2023 active Not Available Not Available Not Avai lable Vitals Date Recorded Body height Body mass index (BMI) Body weight Body temperature Oxygen saturation Oxygen saturation in Arterial blood by Pulse oximetry Respiratory rate Heart rate Systolic blood pressure Diastolic blood pressure Provider Name and Address Organization Details Last Updated DateTime 153.16 cm 35 kg/m2 60247.2 2 g 98.2 [degF] 93 % 93 % 14 /min 76 /min 114 mm[Hg] 72 mm[Hg] AMARA MALAVE RN [facility] 10:24:56 Social History Question Answer Notes LastModified by Organizat ion Details LastModified Time Tobacco Smoking Status Former Smoker FITZ MITCHELL RN [facility], [facility] 12/08/2023 11:15:27 Do You Have An Advance Directive? No Information n ot available 12/08/2023 Is Blood Transfusion Acceptable In An Emergency? Yes Information not available 12/08/2023 What Is Your Code Status? Full Code Information not available 12/08/2023 What Type Of Diet Are You Following? REGULAR Information n ot available 12/08/2023 Do You Or Have You Ever Used E-cigarettes Or Vape? Former User Of Electronic Cigarettes Information not available 12/08/2023 How Many Days Of Moderate To Strenuous Exercise, Like A Brisk Walk, Did You Do In The Last 7 Days? -1 Information not available 12/08/2023 How Many Times Per Week Do You Exercise? 5-7 Times Per Week Information not available 12/08/2023 What Do You Do For Fun? Makes Jewelry, Watch Tv, Listens To [employer] Podcasts, Play With Her Poodle. Information not available 12/08/2023 Would You Say That, In General, Your Health Is Very Good Information not available 12/08/2023 How Often Does Anyone, Including Family, Physically Hurt You? Never Information not available 12/08/2023 How Often Does Anyone, Including Family, Insult Or Talk Down To You? Never Information no t available 12/08/2023 How Often Does Anyone, Including Family, Threaten You With Harm? Never Information not available 12/08/2023 How Often Does Anyone, Including Family, Scream Or Curse At You? Never Information not available 12/08/2023 Within The Past 12 Months, You Worried That Your Food Would Run Out Before You Got Money To Buy More. Often True Information n ot available 12/08/2023 Within The Past 12 Months, The Food You Bought Just Didn't Last And You Didn't Have Money To Get More. Never True Information n ot available 12/08/2023 How Hard Is It For You To Pay For The Very Basics Like Food, Housing, Medical Care, And Heating? Would You Say It Is: Not Hard At All Information not available 12/08/2023 In The Past 12 Months, Has Lack Of Reliable Transportation Kept You From Medical Appointments, Meetings, Work Or From Getting Things Needed For Daily Living? No Information not available 12/08/2023 What Is Your Housing Situation Today? I Have Housing. Information not available 12/08/2023 Who Do You Live With? Daughter And Her Family Information not available 12/08/2023 How Often In The Past Year Have You Used Marijuana (including Smoking, Vaping, Dabbing, Or Edibles)? Never Information not available 12/08/2023 How Often In The Past Year Have You Used Prescription Medications That Were Not Prescribed To You? Never Information n ot available 12/08/2023 How Often In The Past Year Have You Taken Your Own Prescription Medication More Than The Way It Was Prescribed Or For Different Reasons Than Its Intended Purpose? Never Information no t available 12/08/2023 How Often In The Past Year Have You Used Other Drugs (for Example, Heroin, Cocaine, Meth, Salvia, Inhalants)? Never Information not available 12/08/2023 Have You Ever Used IV Drugs? No Information not available 12/08/2023 What Matters Most To You? My Familys Happiness Information not available 12/08/2023 During The Past Four Weeks Has Your Physical And Emotional Health Limited Your Social Activities With Family And Friends, Neighbors, Or Groups? Not At All Information not available 12/08/2023 During The Past Four Weeks, Was Someone Available To Help You If You Needed And Wanted Help? (For Example, If You Saxe Very Nervous, Lonely, Or Blue; Got Sick And Had To Stay In Bed; Needed Someone To Talk To; Needed Help With Daily Chores; Or Needed Help Just Taking Care Of Yourself.) Yes- A Little Information n ot available 12/08/2023 During The Past Four Weeks, What Was The Hardest Physical Activity You Could Do For At Least 2 Minutes? Light Information not available 12/08/2023 Can You Get To Places Out Of Walking Distance Without Help? (For Example, Can You Travel Alone On Buses Or Taxis, Or Drive Your Own Car?) Yes Information not available 12/08/2023 Can You Go Shopping For Groceries Or Clothes Without Someone? s Help? Yes Information not available 12/08/2023 Can You Prepare Your Own Meals? Yes Information not available 12/08/2023 Can You Do Your Housework Without Help? Yes Information not available 12/08/2023 Because Of Any Health Problems, Do You Need The Help Of Another Person With Your Personal Care Needs Such As Eating, Bathing, Dressing, Or Getting Around The House? No Information not available 12/08/2023 Can You Handle Your Own Money Without Help? Yes Information not available 12/08/2023 Are You Having Difficulties Driving Your Car? No Information no t available 12/08/2023 Do You Always Fasten Your Seat Belt When You Are In A Car? Yes- Usually Information not available 12/08/2023 How Often During The Past Four Weeks Have You Been Bothered By Any Of The Following Problems? Falling Or Dizzy When Standing Up? Never Information not available 12/08/2023 Sexual Problems? Never Informat ion not available 12/08/2023 Trouble Eating Well? Never Information not available 12/08/2023 Teeth Or Denture Problems? Never Information not available 12/08/2023 Problems Using The Telephone? Never Information not available 12/08/2023 Tiredness Or Fatigue? Often Information not available 12/08/2023 Have You Had 2 Or More Falls Or Sustained An Injury With A Fall In The Last Year? No Information no t available 12/08/2023 Do You Have Difficulty With Walking Or Balance? No Information not available 12/08/2023 Do You Currently Use A Hearing Device? No Information not available 12/08/2023 Do You Currently Have Any Trouble With Your Vision? No Information no t available 12/08/2023 Do You Exercise For About 20 Minutes Three Or More Days A Week? Yes- Some Of The Time Information not available 12/08/2023 Are There Any Safety Concerns In Your Home (see Attached CDC Pamphlet)? No Information not available 12/08/2023 How Often Do You Have Trouble Taking Medicines The Way You Have Been Told To Take Them? I Always Take Them As Prescribed Information not available 12/08/2023 How Confident Are You That You Can Control And Manage Most Of Your Health Problems? Very Confident Information not available 12/08/2023 Do You Currently Have Any Difficulty With Your Hearing? Yes Information not available 12/08/2023 Date Of Most Recent SBINS 12/08/2023 Information not available 12/08/2023 Do You Have A Medical Power Of Yard Conductor? No Information not available 12/08/2023 How Many Children Do You Have? 3 Information not available 12/08/2023 What Is Your Relationship Status? Information not available 12/08/2023 Do You Or Have You Ever Used Smokeless Tobacco? Never Used Smokeless Tobacco Information not available 12/08/2023 What Types Of Sporting Activities Do You Participate In? None Information not available 12/08/2023 Do You Or Have You Ever Used Any Other Forms Of Tobacco Or Nicotine? Yes Information not available 12/08/2023 Sex: Female Functional Status Question Answer Note LastModified by Organizat ion Details LastModified Time What is your exercise level? Occasional Information not available 12/08/2023 Mental Status None recorded. Family History Relationship Description Onset Age of this Age Resolved Age Notes Notes:*Problem: Father francisco javier machuca, prostate cancer Mother back pain. Medical History No medical history recorded. Gynecological HistoryNo gynecological history recorded. Obstetrics History GPAL:G 0 P 0 0 0 0 Immunizations Vaccine Type Date Status Provider Name and Address Organization Details Recorded Time Pneumococcal conjugate PCV20, polysaccharide [id number] conjugate, adjuvant, PF 12/08/[address], [place], [address], [facility] 12/08/2023 12:11:09 Tdap 12/22/2022 completed Not Available [facility] 06:30:22 zoster, unspecified formulation 02/11/2022 completed Not Available [facility] 09/11/2023 06:30:22 zoster, unspecified formulation 08/21/2021 completed Not Available [facility] 09/11/2023 06:30:22 varicella 02/11/2022 completed Not Available [facility] 06:30:22 varicella 08/21/2021 completed Not Available [facility] 06:30:22 SARS-COV-2 (COVID-19) vaccine, UNSPECIFIED 04/11/2022 completed Not Available [facility] 09/11/2023 06:30:22 SARS-COV-2 (COVID-19) vaccine, UNSPECIFIED 09/03/2021 completed Not Available [facility] 09/11/2023 06:30:22 pneumococcal polysaccharide PPV23 09/20/2018 completed Not Available [facility] 2022 06:30:22 influenza, unspecified formulation 07/25/2021 completed Not Available [facility] 09/11/2023 06:30:22 influenza, unspecified formulation 08/22/2020 completed Not Available [facility] 09/11/2023 06:30:23 Influenza, high-dose, quadrivalent, PF 09/11/2023 completed Not Available [facility] 11/13/2023 05:33:24 Past Encounters Encounter ID Performer Location Encounter Start Date Encounter Closed Date Diagnosis/Indication Diagnosis SNOMED-CT Code [id number] PROSPER HOLGUIN PA-C [facility] [place] [address] [address] [place] [address] 05/17/2024 10:01:47 05/17/2024 11:07:48 Daytime somnolence 706449515560 Atopic dermatitis 188584 01 Low back pain 637410021 Anxiety 57697781 Health Concerns Section Related Observation LastModified by Organization Detai ls LastModified Time None Recorded Concern Status LastModified by Organization Details LastModified Time None Recorded Payers Encounter Date Sequence Insurance Name Policy Number Policy Dewey Covered Member ID Dewey Member ID Guarantor Name 05/17/2024 2 [employer] OPTIONS (MEDICARE SUPPLEMENT) Matthew Mendez [id number] Matthew Mendez 05/17/2024 1 MEDICARE [place]: [employer] Matthew Mendez [id number] Matthew Mendez Notes Date Note Type Note Provider Name and Address Organization Details Recorded Time 05/17/2024 text/html HPI Notes: Letty nelson is here for follow-up of chronic low back pain, anxiety, and reflux. She is feeling pretty well. Looking forward to traveling to [place] to visit with family for several weeks. 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 Responds well to triamcinolone. Needs a renewal. Persistent low back pain that radiates into her left buttock. Reasonably managed with tramadol. No associated numbness or tingling. No associated weakness She is interested in a sleep study referral. Daytime somnolence with known snoring. Her dentist notes that she likely grinds her teeth at night. PROSPER HOLGUIN PA-C [address], [place], [address], [facility]. 05/17/2024 13:14:38 OBGyn Episode No OBEpisode recorded.
--- OUTSIDE RECORDS SUMMARY | 2024-05-25 01:13 | XMS_ITS | Referral Summary ---
Author Organization [facility] Address [address] [place] [address] Care Team Providers Care Turn Machine Operator Name Role Phone Unknown, Provider Primary Care Provider [phone] Social History Tobacco Use Types Packs/Day Years Used Date Smoking Tobacco: Never Assessed Sex and Gender Information Value Date Recorded Sex Assigned at Not on file Gender Identity Not on file Sexual Orientation Not on file Plan of Treatment Not on file Care Teams Turn Machine Operator Relationship Specialty Start Date End Date Unknown, Provider, PCP - General 09/02/22
--- OUTSIDE RECORDS SUMMARY | 2024-05-25 01:13 | XMS_ITS | Encounter Summary ---
Author Organization [facility] Address [address] [place] [address] Care Team Providers Care Patternmaker Pressure Cast Name Role Phone Unknown, Provider Primary Care Provider Encounter Details Date Type Department Care Team (Late st Contact Info) Description 10/06/2023 Lab Requisition [facility] Pathology & Laboratory Medicine - [facility] [address], [place] [id number] Robin Goldman MD [address] [place] [address] [place] [id number] Malignant neoplasm of bladder, unspecified (HCC-CMS); Malignant neoplasm of right ureter (HCC-CMS) Social History Tobacco Use Types Packs/Day Years Used Date Smoking Tobacco: Never Assessed Sex and Gender Information Value Date Recorded Sex Assigned at Not on file Gender Identity Not on file Sexual Orientation Not on file documented as of this encounter Plan of Treatment Not on file documented as of this encounter Procedures Procedure Name Priority Date/Time Associated Diagnosis Comments NON FINANCIAL DEVELOPER/FNA CYTOLOGY Today 10/05/2023 14:30 EST Malignant neoplasm of bladder, unspecified (HCC-CMS) Malignant neoplasm of right ureter (HCC-CMS) documented in this encounter Results * NON FINANCIAL DEVELOPER/FNA CYTOLOGY (10/05/2023 14:30 EST) Note to Patient The following pathology results have been interpreted by your pathologist and may be available to you before your health provider has had the opportunity to review them. Please allow time for your provider to receive these results and explore management options, if applicable. 10/06/2023 14:33 EST [facility] Final Diagnosis A. URINE, BARBOTAGE, CYTOLOGIC EVALUATION: - Negative for high-grade urothelial carcinoma. 10/06/2023 14:33 [facility] Attestation There was significant resident/joe w involvement in the diagnostic evaluation of this case. By the signature below, the attending physician certifies that they have personally conducted a gross and/or microscopic examination of the described specimens and rendered or confirmed the above diagnosis. 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 10/06/2023 14:33 [facility] Gross Description A. 90cc's of clear yellow fluid (Cytolyt added) were received and processed by selective cellular enhancement technique. 10/06/2023 14:33 [facility] Resident/Joe w: Swati Davis MD 10/06/2023 14:33 [facility] Performing Lab [facility] 10/06/2023 14:33 [facility] Scanned Images 10/06/2023 14:33 [facility] Urine URINE / Unknown 10/05/2023 1 4:30 EST 10/06/2023 6:49 EST Robin Goldman MD PATHOLOGY ORDERAB LES Performing Organization Address City/State/[facility] Co de Phone Number [facility] [address] [place] [address] documented in this encounter Visit Diagnoses Diagnosis Malignant neoplasm of bladder, unspecified (HCC-CMS) Malignant neoplasm of right ureter (HCC-CMS) Malignant neoplasm of ureter documented in this encounter Care Teams Patternmaker Pressure Cast Relationship Specialty Start Date End Date Unknown, Provider, PCP - General 09/02/22 documented as of this encounter
--- OUTSIDE RECORDS SUMMARY | 2024-05-25 01:13 | XMS_ITS | Clinical Summary ---
Author Organization [facility] Address [address] [place] [address] Care Team Providers Care Diesel Truck Driver Name Role Phone Unknown, Provider Primary Care Provider Social History Tobacco Use Types Packs/Day Years Used Date Smoking Tobacco: Never Assessed Sex and Gender Information Value Date Recorded Sex Assigned at Not on file Gender Identity Not on file Sexual Orientation Not on file Plan of Treatment Health Maintenance Due Date Last Done Comments Hepatitis C Screen 1955 RSV Immunization ( o r 60+ Years) (1 - 1-dose 60+ series) 2017 Fall Risk Screening 2022 COVID-19 Vaccine ( season) 2023 Care Teams Diesel Truck Driver Relationship Specialty Start Date End Date Unknown, Provider, PCP - General 09/02/22
--- OUTSIDE RECORDS SUMMARY | 2024-05-25 01:13 | XMS_ITS | Data Portability ---
Author Organization [place] - [facility], [facility] [place] [address] Assessment Encounter Date Assessment Date Assessment LastModified by Organization Details LastModified Time 12/08/2023 12/08/2023 Patient presente d to office today for their Medicare Annual Wellness Visit. Education was provided on healthy nutrition, including a diet rich in fruits and vegetables, minimizing simple carbohydrates, salt, and saturated fats. Encouraged regular cardiovascular exercise such as walking at least 30 minutes daily, 5 times per week. Emphasized preventive health measures and educated pt on fall prevention and community-based lifestyle interventions to help reduce health risks and promote healthy living. Personalized prevention plan (PPP) completed and reviewed with patient. Patient was given copy of PPP at conclusion of visit. Not available 12/08/2023 07:21:55 Plan of Treatment Reminders Order Date Submit Date Provider Last Modified By Organization Details Last Modified Time Details Appointments Follow Up 30 2023 10:30A M PROSPER GRAY Not available Not available Not available Lab None recorded. Referral audiologi st referral - chronic slowly progressi ve hearing loss 2023 024 [facility], [address] [place] [address] Rd, [address], [place], [address], 12/11/2023 11:20:33 sleep medicine referral - suspected sleep apnea 2023 024 [facility], [address] [place] [address] [address], [place], [address], 05/18/2024 09:10:45 Procedures None recorded. Surgeries None recorded. Imaging US, thyroid - surveilla nce left upper thyroid nodule (last us at [facility] ) in 2021 024 [facility] [address], [place], [address], 02/08/2024 16:29:48 MAMMO, screening , digital, bilateral 2023 024 [facility] (Radiology), [address], [address], 02/01/2024 14:54:59 XR, lumbar spine, 2 view - chronic low back pain. 2023 024 [email or web address], [address], [place], [address], 05/18/2024 09:36:56 Medication Orders tramadol 50 mg tablet 2023 024 [facility], [address] [place], [address], 05/17/2024 13:14:12 triamcino lone acetonide 0.1 % topical ointment 2023 024 [facility], [address] [place], [address], 05/17/2024 10:57:04 Patient TargetsNo targets recorded. Patient Instructions Encounter Date Encounter Id Patient Instructions Last Modified By Organization Details Last Modified Time 12/08/2023 [id number] Matthew - we will order mammogram and thyroid ultrasound. I will make referral to the ENT for your hearing. You were given an advanced directive to fill out. I would like you to start walking - working up to 30 minutes daily. You received the pneumonia vaccine today [email or web address] Not available 12/08/2023 11:40:36 Discussed and explained advance directives such as standard forms to the {{patient caregiv er patient and caregiver}}. Face to face discussion lasted for a duration of ___ minutes. Not available 12/08/2023 07:21:55 05/17/2024 [id number] We will get an x-ray of your lower back, and get a sleep study. Call us when you are in [place] for refill of tramadol. 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 Referral for Travis ateral hearing loss chronic slowly progressive hearing loss Referring Physician: Prosper Gray [facility] Medicine, Encounter Date: 12/08/2023 Sleep Medicine Referral for Daytime somnolence suspected sleep apnea Referring Physician: Prosper Gray [facility] Medicine, Encounter Date: 05/17/2024 Results Created Date Observation Date Name Description Value Unit Range Abnormal Flag LastModifiedBy Organization Detail LastModifiedTime 12/02/19 24 12/02/2023 physi curtis dsu disch arge repor t PHYSIC ANALIA DSU DISCHA RGE REPORT PATIEN T NAME: Bryan latashaWilber Sims UNIT #: [id number] ADMITT ING PROVID ER: Jalyn Louis ACCOUN T #: [id number] PRIMAR Y CARE PROVID ER: JOHNATHAN MCNAMARA DATE OF ADMIT: : 1954 Date of servic e: Time of Servic e: 14:53 Discha rge Plan Dispos ition Patien t Dispos ition: Home Condit ion: Good Discha rge Detail s Reason For Visit: R Trigge r thumb releas e Attend ing Provid er: Tejas Cr Primar y Care Provid er: Johnathan Mcnamara Home Meds and New Rx's Prescr iption s: New acetam inophe n 500 mg tablet 1,000 mg PO TID Qty: 90 0RF ibupro fen 600 mg tablet 600 mg PO TID PRNQty : 90 3RF Contin ued omepra zole 40 mg capsul e,xuan yed releas e(DR/E C) 40 mg PO DAILY sertra line 50 mg tablet 50 mg PO DAILY famoti dine 40 mg tablet 40 mg PO DAILY PRN ergoca lcifer ol (vitam in D2) 1,250 mcg (50,00 0 unit) capsul e 1,250 mcg PO QWEEK oxybut ynin chlori de 5 mg tablet 5 mg PO BID-TI D PRN (Reaso n: bladde r spasms ) Qty: 60 1RF tramad ol 50 mg tablet 50 mg PO DAILY PRN Discha rge Instru ctions Stand Alone Forms: Joseluis Costello. Finger Releas e Referr als: Tejas Cr MD [[facility] ANALIA] - Activi ty:: Activi ty as Tolera yimi Remove Dressi ngs/Wo und Care:: 48 hours Shower /Bathe :: 48 hours Diet:: As Tolera yimi Discha rge Orders Discha rge Orders : Discha rge Order (Sahra olmos); Ordere d Ordere d By: Jalyn Louis cc: ------ ------ ------ ------ ------ ------ ------ ------ ------ ------ ------ --- Dictat ed by: JALYN ALEJANDRE Dictat ed: Time: 145 Date: 1453 Date: 1933 Date: Transc ribed Date: Transc ribed Time: 1451 By: PEREZ Holley This is privil eged, confid ential inform ation, intend ed only for the provid er named. Any use or distri bution by any person other than this provid er is strict ly prohib ited. If you receiv e this report in error, please notify us immedi carroll at and return the origin al report to us at the addres s above. Thank you. emiliana [facility] [address] , [place], [address] 12/02/2023 20:36:56 12/02/19 24 12/02/2023 pastora t of opera tion REPORT OF OPERAT ION PATIEN T NAME: Wilber Matson UNIT #: [id number] ADMITT ING PROVID ER: Tejas Cr M.D. ACCOUN T #: [id number] PRIMAR Y CARE PROVID ER: JOHNATHAN MCNAMARA DATE OF ADMIT: : 1954 Date of servic e: Time of Servic e: 14:20 Operat sarina Note Operat sarina Note DATE OF PROCED URE: PRE-OP DIAGNO SIS: Right Trigge r Thumb POST-O P DIAGNO SIS: same PROCED URE: Trigge r Finger Releas e - Right Trigge r Thumb SURGEO N: Laurent garza ANESTH ESIA TYPE: Local By Surgeo n Refer to Anesth esia Record ESTIMA YIMI BLOOD LOSS: 5 PATHOL OGY: none sent COMPLI CATION S: None Patien t was transp orted to: same day Patien t's condit ion: stable Indica tions: I have seen Matthew in clinic for sympto ms of a trigge r finger . The catchi ng, clicki ng, lockin g, and pain limite d functi on. The diagno sis of trigge r finger was eviden t. The sympto ms had not respon ded to conser vative measur es. I discus sed trigge r finger releas e with the patien t. I review ed the risks of the proced ure to includ e, but not limite d to, bleedi ng, infect ion, pain, stiffn ess, incomp lete releas e, damage to nerves or vessel s, contin ued catchi ng, recurr ence. Despit e these risks, the patien t electe d to procee d. Findin gs: There was a tighte sreedhar A1 lissette which was releas ed. The flexor tendon s were inspec yimi and the patien t was able to move the finger withou t any catchi ng, clicki ng, or lockin g. Proced ure Descri ption: Matthew was greete d in the preope rative holdin area where the correc t side was identi fied and marked . The consen t was review ed with the patien t and signed . All questi ons were answer ed. She was taken back to the operat ing room. The patien t was placed into the supine positi on on the operat ing room table with the right arm on an arm board. All bony promin ences were well padded . No prophy lactic antibi otics were admini stered since this was a clean, electi ve hand surgic al case. The rights ssssss arm was then preppe d with Chlora prep and draped in a standa rd fashio n with stocki hannah and extrem ity drape. A timeou t to confir m correc t identi ty, side and site, proced ure, allerg ies, anesth esia, and medica l concer ns was perfor med. The surgic al site was marked as a longit udinal incisi on direct ly over the A1 lissette of the involv ed digit. This was confir med with palpat ion during finger flexio n. This area, overly ing the metaca rpal head, was then anesth etized with 1% Lidoca ine. The patien t tolera yimi this well and once the anesth etic had setup, the proced ure began. A longit udinal incisi on was made throug h skin only, approx imatel y 1cm. The deep tissue s were dissec yimi bluntl y. Once the A1 lissette and flexor tendon s were identi fied the soft tissue includ ing neurov ascula r struct ures were retrac yimi medial ly and latera lly. There were no crossi ng struct ures over the A1 lissette . The proxim al edge of the lissette was identi fied and the lissette was incise d with tenoto my scisso rs. There was a releas e of the tendon s once this was fully releas ed. The tendon s were then remove d from the wound and inspec yimi. Excess synovi um was resect ed. The tendon s were then return ed and the patien t was asked to move the finger into deep flexio n and back to extens ion. There was no recrea tion of the pre-op erativ e sympto ms. The hand was then once more inspec yimi for any A0 lissette or area of possib le constr iction . The wound was then irriga yimi and the skin was closed with a 4-0 Nylon. This was dresse d with gauze and a Confor m dressi ng. The patien t tolera yimi the proced ure well and was return ed to [facility] area in a stable condit ion suffer ing no known compli cation . cc: JOHNATHAN MCNAMARA ------ ------ ------ ------ ------ ------ ------ ------ ------ ------ ------ --- Dictat ed by: JOSELUIS GARZA MD, LAURENT Singh Dictat ed: Time : 2054 Date: 2 100 Date: Date: Transc ribed Date: Transc ribed Time: 2054 By: SHAWNEE This is privil eged, confid ential inform ation, intend ed only for the provid er named. Any use or distri bution by any person other than this provid er is strict ly prohib ited. If you receiv e this report in error, please notify us immedi dimitrisly at [phone] and return the origin al report to us at the addres s above. Thank you. emiliana [facility] [address], [place], [address] 12/03/2023 07:28:38 01/28/20 24 01/28/2024 MAMMO , scree huang, digit al, bilat eral Nga t Name: Wilber Matson Unit #: [id number] Loc: DI Orderi ng Provid er: Johnathan Mcnamara Accoun t #: [id number] Status : REG CLI Primar y Care Provid er: Johnathan Mcnamara Date of Exam: Sex: F Admiss ion Date: : 1954 Age: 68 Exam(s ) MG MAMMO SCREEN ING EXAM: MG MAMMO SCREEN ING CLINIC AL HISTOR Y: SCREEN ING, Z12.31 TECHNI QUE: Bilate ral full field digita l CC and MLO mammog raphic images were obtain ed with 3D tomosy nthesi s and utiliz ing comput er aided detect ion (CAD). COMPAR ROSA: Availa ble for compar rosa. FINDIN GS: Masses /Archi tectur al Distor tion: There is a 4 mm asymme tric densit y in the centra l inferi or left breast on the MLO view. It is 9 cm from the nipple . This was not seen on prior examin ations . Microc alcifi cation s: No suspic ious pleomo rphic- type are seen. Skin Thicke huang/N ipple Retrac tion: None. IMPRES MAXIM: 1. New 4 mm asymme tric densit y in the inferi or left breast on the MLO view. 2. Spot compre ssion views reques yimi for furthe r evalua tion. Limite d left breast ultras ound may be indica yimi at that time. BI-RAD S Catego ry 0 - Assess ment Incomp lete: Need additi onal imagin g evalua tion Breast Densit y - Catego ry B - Scatte red areas of fibrog landul ar densit y Breast densit y catego ry C or D implie s that the patien t has dense breast tissue . Dense breast tissue is very common and is not abnorm al but dense breast tissue can make it harder to find cancer on a mammog roni. Also, dense breast tissue may increa se their breast cancer risk. This inform ation about the result of the mammog roni report was provid ed to the patien t to raise their awaren ess. Use this report when you speak with the patien t about their risks for breast cancer , which includ es their family histor y. At that time, you may recomm end for more screen ing tests (Ultra sound or MRI) as they might be useful based on their risk. A negati ve radiog raphic report should not delay biopsy if a domina nt or clinic ally suspic ious mass is presen t. Up to ten percen t of cancer s are not identi fied on mammog johnny. A negati ve report may reinfo rce clinic al impres maxim. Adenos is and dense breast s may obscur e an underl anushka neopla sm. False positi ve report s averag e 6 to 10%. Patien t will receiv e a letter notify ing them of these result s. Ordere d By: Johnathan Mcnamara CC: ------ ------ ------ ------ ------ ------ ------ ------ ------ ------ ------ ------ - Dictat ed By: Yoel Avila M.D. 1221 1221 Transc ribed By: Yoel Avila 1221 This is privil eged, confid ential inform ation intend ed only for the provid er named. Any use or distri bution by any person other than this provid er is strict ly prohib ited. If you receiv e this report in error, please notify us immedi ately at [phone] and return the origin al report to us at the addres s above. Thank- you. [email or web address] [facility] (Radiology) [address] [place] [address] Dr, [place], [address], 02/17/2024 14:43:01 01/28/20 24 01/28/2024 US, thyro id Nga costello Name: Wilber Matson Unit #: [id number] Loc: DI Orderi ng Provid er: Johnathan Mcnamara Accoun t #: [id number] Status : REG CLI Primar y Care Provid er: Johnathan Mcnamara Date of Exam: Sex: F Admiss ion Date: : 1954 Age: 68 Exam(s ) US THYROI D EXAM: US THYROI D CLINIC AL HISTOR Y: THYROI D NODULE ,E04.1 . TECHNI QUE: Ultras ound thyroi d perfor med using standa rd protoc ol. COMPAR ROSA: US US THYROI D AND OR PARATH YROID [id number] from 2021 FINDIN GS: ISTHMU S: 3 mm RIGHT LOBE: Size: 3.2 x 1.5 x 1.9 cm Echoge nicity : Normal . Vascul arity: Normal . Nodule s: No suspic ious right thyroi d nodule s. LEFT LOBE: Size: 3 x 1.7 x 1.7 cm Echoge nicity : Normal . Vascul arity: Normal . Nodule s: There is a solid 1.1 x 1.3 x 1.2 cm isoech oic smooth ly margin ated nodule . There are few puncta te echoge liyah foci. This is consis tent with a TI rads level 4 nodule . Due to its size, follow -up ultras ound is recomm ended. There is a 1.1 x 0.8 x 0.8 cm solid hypoec hoic nodule . No echoge liyah foci are seen. It is consis tent with a TI rads level 4 nodule . Due to its size, ultras ound follow -up is recomm ended. OTHER FINDIN GS: None. IMPRES MAXIM: Follow -up ultras ound recomm ended on 2 left thyroi d nodule s. DATA REPOSI TORY: Evelyn cornejo By: Johnathan Mcnamara CC: ------ ------ ------ ------ ------ ------ ------ ------ ------ ------ ------ ------ - Dictat ed By: Yoel Avila M.D. 1253 1253 Transc ribed By: Yoel Avila 1253 This is privil eged, confid ential inform ation intend ed only for the provid er named. Any use or distri bution by any person other than this provid er is strict ly prohib ited. If you receiv e this report in error, please notify us sathya hodges at and return the origin al report to us at the addres s above. Thank- you. [email or web address] [facility] [address], [place], [address], 02/08/2024 16:29:48 02/09/20 24 02/09/2024 MAMMO , scree huang, unila teral Nga t Name: Wilber Matson Unit #: [id number] Loc: DI Orderi ng Provid er: Johnathan Mcnamara Accoun t #: [id number] Status : REG CLI Primar y Care Provid er: Johnathan Mcnamara Date of Exam: Sex: F Admiss ion Date: : 1954 Age: 68 Exam(s ) MG MAMMO SCREEN CALL BACK UNI EXAM: MG MAMMO SCREEN CALL BACK UNI CLINIC AL HISTOR Y: NEW 4MM ASYMME TRIC DENSIT Y LEFT BREAST R92.8 ABNL MAMMO TECHNI QUE: Spot compre ssion views with tomogr aphic imagin g were perfor med. COMPAR ROSA: 2020 throug h recent exam of 28 January 2024 FINDIN GS: No suspic ious masses or suspic ious microc alcifi cation s are seen. No persis tent abnorm ality is seen on the additi onal views perfor med. The findin gs are consis tent with overly ing fibrog landul ar tissue . There has been no signif icant change from prior exams. IMPRES MAXIM: BI-RAD S Catego ry 1, Negati ve Yearly screen ing mammog johnny is recomm ended. Breast Densit y - Catego ry B, scatte red fibrog landul ar densit ies. Ordere d By: Johnathan Mcnamara candy CC: ------ ------ ------ ------ ------ ------ ------ ------ ------ ------ ------ ------ - Dictat ed By: Angel Unger 1056 1056 Transc ribed By: Sangita Bal 1056 This is privil eged, confid ential inform ation intend ed only for the provid er named. Any use or distri bution by any person other than this provid er is strict ly prohib ited. If you receiv e this report in error, please notify us immedi dimitrisly at [phone] and return the origin al report to us at the addres s above. Thank- you. [email or web address] [place] [id number] [place], [address] 02/18/2024 08:58:28 Result Notes None recorded. Problems Name Status Onset Date Resolution Date Notes Provider Name and Address Organization Details Recorded Time Anxiety Active 202106/08/2023 - Comments only - Prosper Isaac ELLIS - Well-controll ed on 50 mg of sertraline. She just bought a new puppy that she thinks is helping her mood as well. Problem Code: F41.8; Problem Code Type: ICD-10; Not Available [facility] 3 05:34:19 Malignant neoplasm of urinary bladder Active 202103/23/2023 - Comments only - Prosper Gray RPA - She continues with routine surveillance with urology. Problem Code: C67.9; Problem Code Type: ICD-10; Not Available [facility] 3 05:34:19 Gastroesophag eal reflux disease without esophagitis Active 202106/08/2023 - Comments only - Prosper Gray RPA - She takes daily PPI. She is unable to tolerate a day without it. Well-controll ed as long she takes the PPI. Occasional breakthrough that responds to famotidine. Problem Code: K21.9; Problem Code Type: ICD-10; Not Available [facility] 3 05:34:19 Vitamin D deficiency Active 2021 Problem Code: E55.9; Problem Code Type: ICD-10; Not Available [facility] 3 05:34:19 Non-toxic uninodular goiter Active 202109/30/2022 - Comments only - Prosper Gray RPA - Routine surveillance. Last in January 2022. Recommended a 2-year follow-up ultrasound. Problem Code: E04.1; Problem Code Type: ICD-10; Not Available [facility] 3 05:34:19 Low back pain Active 202109/29/2022 - Comments only - Prosper Gray RPA - tramadol prn Problem Code: M54.50; Problem Code Type: ICD-10; Not Available [facility] 3 05:34:20 Pain of left shoulder joint Active 202109/30/2022 - Comments only - Prosper Gray [facility] - Chronic recurring discomfort in her left shoulder. Generally functional. No significant loss in strength or range of motion. Reviewed gentle stretching and range of motion exercises. 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 Being followed by Dr. Goldman. Problem Code: D30.00; Problem Code Type: ICD-10; Not Available [facility] 3 05:34:20 Lung field abnormal Active 202109/30/2022 - Comments only - Prosper Gray RPA - stable on 02/21/22 CT. No further followup needed. Problem Code: R91.8; Problem Code Type: ICD-10; Not Available [facility] 3 05:34:20 Screening for malignant neoplasm of breast Active 2022 Problem Code: Z12.39; Problem Code Type: ICD-10; Not Available [facility] 3 05:34:20 Bone density finding Active 202206/08/2023 - Comments only - Prosper Gray RPA - She had a DEXA scan in 2021. Revealed mild osteopenia. She takes weekly vitamin D2. Unfortunately she takes daily PPI as well. Unable to tolerate weaning. Encouraged routine walking. Problem Code: M85.80; Problem Code Type: ICD-10; Not Available [facility] 3 05:34:20 Hyperlipidemi a Completed 202109/30/2022 Problem Code: E78.5; Problem Code Type: ICD-10; Not Available [facility] 3 05:34:21 Anemia Completed 202109/30/2022 Problem Code: D64.9; Problem Code Type: ICD-10; Not Available [facility] 3 05:34:21 Hemorrhoids Completed 202109/30/2022 Problem Code: K64.9; Problem Code Type: ICD-10; Not Available [facility] 3 05:34:21 Major depression, single episode Completed 202109/30/2022 Problem Code: F32.9; Problem Code Type: ICD-10; Not Available [facility] 3 05:34:21 Osteoarthriti s Completed 202109/30/2022 Problem Code: M19.90; Problem Code Type: ICD-10; Not Available [facility] 3 05:34:21 Pain in thoracic spine Completed 202109/30/2022 Problem Code: M54.9; Problem Code Type: ICD-10; Not Available [facility] 3 05:34:21 Osteoarthriti s of multiple joints Completed 202109/30/2022 Problem Code: M15.9; Problem Code Type: ICD-10; Not Available [facility] 3 05:34:22 Trigger thumb of right hand Active 2022 Problem Code: M65.311; Problem Code Type: ICD-10; Not Available [facility] 4 05:37:53 Problem Notes None recorded. Procedures Surgical History Date Name Laterality Status Provider Name and Address Organization Details Recorded Time 4 release of trigger thumb completed [address], [place], [address], [facility] 12/02/2023 20:37:30 3 excision of urinary bladder completed [address], [place], [address], [facility] 10/19/2023 09:43:44 Imaging Results Imaging Date Name Status LastModified by [facility] Details LastModified Time 12/02/2023 physician dsu discharge report completed emiliana [address] [place], [address] 12/02/2023 20:36:56 12/02/2023 report of operation completed emiliana [address] [place], [address] 12/03/2023 07:28:38 01/28/2024 MAMMO, screening, digital, bilateral completed [facility] (Radiology) [address] [place], [address], 02/17/2024 14:43:01 01/28/2024 US, thyroid completed [email or web address] [facility] [address], [place], [address], 02/08/2024 16:29:48 02/09/2024 MAMMO, screening, unilateral completed [email or web address] [facility] [address], [address] 02/18/2024 08:58:28 Procedure Notes None recorded. Medical Equipment None Reported. Allergies Allergen ID Allergen Name Allergen Category Reaction Reaction Severity Criticality Documentation Date Start Date Code Code System Note Provider Name and Address Organization Details Recorded Time 76124 Cipro medicatio n palpitati ons severe Not available 09/11/20232021 01774 3 RxNorm palpi tatio ns Not Available [facility] 3 16:21:51 06571 levofloxa heather medicatio n palpitati ons moderate Not available 09/11/20232021 59487 RxNorm palpi tatio ns Aller gyCod e: '1665 517'; Aller gyNam e: 'LEVO FLOXA HEATHER'; Aller gyCon ceptT ype: 'RX Norm' ; Not Available [facility] 3 16:21:51 Medications Name Sig Start Date [...] mass index (BMI) Body weight Body temperature Respiratory rate Heart rate Systolic blood pressure Diastolic blood pressure Provider Name and Address Organization Details Last Updated DateTime 4 153.16 cm 35.3 kg/m2 90390.9 7 g 99.3 [degF] 16 /min 72 /min 138 mm[Hg] 80 mm[Hg] FITZ MITCHELL RN [facility] 4 10:59:59 Date Recorded Body height Body mass index (BMI) Body weight Body temperature Oxygen saturation Oxygen saturation in Arterial blood by Pulse oximetry Respiratory rate Heart rate Systolic blood pressure Diastolic blood pressure Provider Name and Address Organization Details Last Updated DateTime 4 153.16 cm 35 kg/m2 59622.2 2 g 98.2 [degF] 93 % 93 % 14 /min 76 /min 114 mm[Hg] 72 mm[Hg] AMARA MALAVE RN [facility] 4 10:24:56 Social History Question Answer Notes LastModified by Organizat ion Details LastModified Time Tobacco Smoking Status Former Smoker FITZ MITCHELL RN [facility], [facility] 12/08/2023 11:15:27 Do You Have An Advance [...] And Wanted Help? (For Example, If You [place] Very Nervous, Lonely, Or Blue; Got Sick [...] Safety Concerns In Your Home (see Attached [facility] Pamphlet)? No Information not available 12/08/2023 How [...] Do You Have A Medical Power Of Compensation And Benefits Advisor? No Information not available 12/08/2023 How Many [...] this Age Resolved Age Notes Notes:*Problem: Father alzhe imers, prostate cancer Mother back pain. Medical History No medical history recorded. Gynecological HistoryNo gynecological history recorded. Obstetrics History GPAL:G 0 P 0 0 0 0 Immunizations Vaccine Type Date Status Provider Name and Address Organization Details Recorded Time Pneumococcal conjugate PCV20, polysaccharide QFQ199 conjugate, adjuvant, PF 12/08/[address], [place], [address], [facility]. 12/08/2023 12:11:09 Tdap 12/22/2022 completed Not Available [facility] 06:30:22 zoster, unspecified formulation 02/11/2022 completed Not Available [facility] 09/11/2023 06:30:22 zoster, unspecified formulation 08/21/2021 completed Not Available [facility] 09/11/2023 06:30:22 varicella 02/11/2022 completed Not Available [facility] 06:30:22 varicella 08/21/2021 completed Not Available [facility] 06:30:22 SARS-COV-2 (COVID-19) vaccine, UNSPECIFIED 04/11/2022 completed Not Available [facility] 09/11/2023 06:30:22 SARS-COV-2 (COVID-19) vaccine, UNSPECIFIED 09/03/2021 completed Not Available [facility] 09/11/2023 06:30:22 pneumococcal polysaccharide PPV23 09/20/2018 completed Not Available [facility] 2022 06:30:22 influenza, unspecified formulation 07/25/2021 completed Not Available [facility] 09/11/2023 06:30:22 influenza, unspecified formulation 08/22/2020 completed Not Available [facility] 09/11/2023 06:30:23 Influenza, high-dose, quadrivalent, PF 09/11/2023 completed Not Available [facility] 11/13/2023 05:33:24 Past Encounters Encounter ID Performer Location Encounter Start Date Encounter Closed Date Diagnosis/Indication Diagnosis SNOMED-CT Code [id number] PROSPER GRAY PA-C [facility] [place] [address] 12/08/2023 10:36:20 12/08/2023 12:39:34 Adult health examination 797590248 Screening mammography 24 293335 Thyroid nodule 756187418 Bilateral hearing loss 74685891 [id number] PROSPER GRAY PA-C [facility] [place] [address] 05/17/2024 10:01:47 05/17/2024 11:07:48 Daytime somnolence 263466886413 Atopic dermatitis 055801 01 Low back pain 847662163 Anxiety 57848518 Health Concerns Section Related Observation LastModified by Organization Detai ls LastModified Time None Recorded Concern Status LastModified by Organization Details LastModified Time None Recorded Advance Directives Directive N: Payers Encounter Date Sequence Insurance Name Policy Number Policy Dewey Covered Member ID Dewey Member ID Guarantor Name 12/08/2023 2 [employer] OPTIONS (MEDICARE SUPPLEMENT) Matthew J Andrea [id number] Matthew Levi Mendez 12/08/2023 1 [place] [employer] Matthew J Andrea [id number] Matthew Levi Mendez 05/17/2024 2 [employer] OPTIONS (MEDICARE SUPPLEMENT) Matthew Sims Andrea [id number] Matthew Levi Mendez 05/17/2024 1 [place] [employer] Matthew Mendez [id number] Matthew Levi Mendez Notes Date Note Type Note Provider Name and Address Organization Details Recorded Time 12/08/2023 text/html HPI Notes: Letty nelson is here for Medicare wellness visit. She feels that she is doing okay. No significant concerns today. She continues to follow with urology for bladder cancer surveillance and kidney angiomyolipoma. She feels her chronic issues are well-managed. She does not have an advanced directive. [address], [place], [address], [facility]. 12/08/2023 12:25:22 05/17/2024 text/html HPI Notes: Letty nelson is here for follow-up of chronic low back pain, anxiety, and reflux. She is feeling pretty well. Looking forward to traveling to [place] to visit with family for several weeks. [...] likely grinds her teeth at night. PROSPER GRAY PA-C [address], [place], [address], [facility]. 05/17/2024 13:14:38 OBGyn Episode No OBEpisode recorded.
== END ==
PROVIDERS: PCP Physician Assistant; Visit Provider Physician Assistant
DX: M54.50 Low back pain, unspecified (principal); M51.36 Other intervertebral disc degeneration, lumbar region
CPT/HCPCS: 72110

== ENCOUNTER 2024-09-15 16:38 | Outpatient (REF) | payer MEDICARE, SELFPAY ==
[2024-09-15 15:26] LABS: Calculated LDL 143 mg/dL (<100); Cholesterol 235 mg/dL (<200); HDL Cholesterol 69 mg/dL (40-60); Triglyceride 115 mg/dL (<150)
[2024-09-15 16:36] LABS: Hemoglobin A1C 5.8 % (<5.7)
== END 2024-09-15 16:39 | disposition home or self-care (01) ==
LOC: NCHCN 16:38
PROVIDERS: PCP Physician Assistant; Visit Provider Physician Assistant
DX: Z13.1 Encounter for screening for diabetes mellitus (principal); Z13.220 Encounter for screening for lipoid disorders
CPT/HCPCS: 80061; 83036

== ENCOUNTER → 2024-11-29 12:36 | Outpatient (BNVA) | payer MEDICARE, SELFPAY | PROVIDERS: PCP Physician Assistant; Referring Provider Physician Assistant; Visit Provider Urology | DX: C67.9 Malignant neoplasm of bladder, unspecified (principal); C66.1 Malignant neoplasm of right ureter | CPT/HCPCS: 52000; 81003; 99214 ==

== ENCOUNTER 2024-11-29 13:34 | Outpatient (REF) | payer MEDICARE, SELFPAY ==
--- NOTE | 2024-11-29 13:00 | PAPNONF_PTH ---
PATIENT: Matthew Mendez LOC: [facility] U#:[id number] AGE/SX: 69/F ROOM: RE11/29/[address]: Robin Goldman MD : [id number] BED: DIS: 11/29/2024 SPEC #: [id number] RECD: 11/29/24 17:46 STATUS: JANNA REQ #: [id number] RICKY: 11/29/24 13:[address]: Robin Goldman DEPT: [facility] Cytology RECD BY: Cadence Morales ENTERED: 11/29/24 17:46 SP TYPE: AMBROSE LUO DR: Prosper Gray Tissues: 1 - BODY FLUID CYTO(SPUTUM/URINE)[facility] Procedures: BODY FLUID CYTO(URINE/SPUTUM) Comments: [id number] (TOTAL VOLUME = 100 ml) (REFRIGERATED) (50 ml URINE & 30 ml CYTOLYTE ADDED IN 2 CONTAINERS)
== END 2024-11-29 13:35 | disposition home or self-care (01) ==
LOC: LBN 13:34
PROVIDERS: PCP Physician Assistant; Visit Provider Urology
DX: Z85.51 Personal history of malignant neoplasm of bladder (principal)
CPT/HCPCS: 88104

== ENCOUNTER 2025-02-06 01:50 | Outpatient (CLI) | payer MEDICARE, SELFPAY ==
--- NOTE | 2025-02-06 | DI.RAD_ITS ---
Exam(s) XR KNEE RT 3V AP,LAT,JOSE EXAM: XR KNEE RT 3V AP,LAT,JOSE CLINICAL HISTORY: RT KNEE PAIN,M25.561. TECHNIQUE: 2D digital imaging was performed. Three views. COMPARISON: No exams were available for comparison FINDINGS: BONES: No acute fracture is present. No bony destructive lesion is seen. Small enthesophyte at the upper pole of the patella. JOINTS: The knee is normally aligned. Joint spaces are maintained. No joint effusion is seen. Mil d periarticular spurring SOFT TISSUE: Normal. IMPRESSION: Mild degenerative changes. DATA REPOSITORY: RADIATION DOSE DELIVERED:
== END 2025-02-06 02:10 ==
LOC: DI 01:51
PROVIDERS: PCP Physician Assistant; Visit Provider Physician Assistant
DX: M25.561 Pain in right knee (principal)
CPT/HCPCS: 73562

== ENCOUNTER 2025-05-24 01:18 | Outpatient (CLI) | payer MEDICARE, SELFPAY ==
--- NOTE | 2025-05-24 10:31 | DI.MAMMO_ITS ---
Exam(s) MAMMO SCREENING EXAM: MAMMO SCREENING CLINICAL HISTORY: SCREENING MAMMO Z12.31 TECHNIQUE: Bilateral full field digital CC and MLO mammographic images were obtained with 3D tomosynthesis and utilizing computer aided detection (CAD). COMPARISON: Comparison is made with prior examinations. FINDINGS: Masses/Architectural Distortion: No suspicious masses or areas of architectural distortion are present. Microcalcifications: No suspicious pleomorphic-type are seen. Skin Thickening/Nipple Retraction: None. IMPRESSION: 1. No significant interval change with no specific features of malignancy noted. 2. Unless there is more urgent need, screening mammography is recommended, as per [employer] guidelines. BI-RADS Category 1 - Negative Breast Density - Category B - There are scattered areas of fibroglandular density. Breast density Category C or D implies that the patient has dense breast tissue. Dense breast tissue can make it harder to find cancer on a mammogram. Dense breast tissue is also associated with an increased risk of breast cancer. This information about the result of the mammogram report was provided to the patient to raise their awareness. Use this report when you speak with the patient about their risks for breast cancer, which includes their family history. At that time, you may recommend additional screening tests (Ultrasound or MRI) as these tests may add significant information. A negative radiographic report should not delay biopsy if a dominant or clinically suspicious mass is present. Up to ten percent of cancers are not identified on mammography. A negative report may reinforce clinical impression. Adenosis and dense breasts may obscure an underlying neoplasm. False positive reports average 6 to 10%. Patient will receive a letter notifying them of these results.
== END 2025-05-24 01:38 ==
LOC: DI 01:18
PROVIDERS: PCP Physician Assistant; Visit Provider Physician Assistant
DX: Z12.31 Encounter for screening mammogram for malignant neoplasm of breast (principal); R92.323 Mammographic fibroglandular density, bilateral breasts
CPT/HCPCS: 77063; 77067

== ENCOUNTER 2025-10-11 00:39 | Outpatient (CLI) | payer MEDICARE, SELFPAY ==
[2025-10-11 08:28] LABS: HCT 40.7 % (36.0-46.0); HGB 13.2 g/dL (11.2-15.7); MCH 28.1 pg (27.0-33.0); MCHC 32.4 % (32.0-36.0); MCV 87 fL (80-95); MPV 11.2 fL (8.0-11.0); Platelet Count 275 10^3/uL (130-400); RBC 4.69 10^6/uL (3.93-5.22); RDW 14.3 % (11.7-14.6); RDW-SD 45.6 fL; WBC 7.61 10^3/uL (4.4-10.8)
[2025-10-11 08:53] LABS: Hemoglobin A1C 5.7 % (<5.7)
[2025-10-11 09:32] LABS: ALT 29 U/L (10-49); AST 24 U/L (<34); Albumin 4.2 g/dL (3.2-5.0); Alkaline Phosphatase 81 U/L (46-116); Anion Gap 9.3 mmol/L (3-11); BUN 16 mg/dL (9-23); Bilirubin, Total 0.6 mg/dL (0.2-1.2); CO2 27.7 mmol/L (20.0-31.0); Calcium 9.0 mg/dL (8.3-10.6); Chloride 108 mmol/L (98-107); Cholesterol 182 mg/dL (<200); Glucose 100 mg/dL (74-106); HDL Cholesterol 57 mg/dL (>40); Potassium 4.2 mmol/L (3.5-5.1); Sodium 145 mmol/L (136-145); Total Protein 7.2 g/dL (5.7-8.2)
== END 2025-10-11 00:40 | disposition home or self-care (01) ==
LOC: LBO 00:39
PROVIDERS: PCP Physician Assistant; Visit Provider Physician Assistant
DX: E78.5 Hyperlipidemia, unspecified (principal); R73.03 Prediabetes; K21.9 Gastro-esophageal reflux disease without esophagitis
CPT/HCPCS: 36415; 80053; 80061; 85027; 83036